=== PATIENT | female | born 1985 | race Caucasian/White ===

== ENCOUNTER 2020-06-07 08:08 | Outpatient (CLI) | payer OTHER, SELFPAY ==
--- NOTE | ~2020-06-07 | US_ITS ---
Corrected Report Order # added See bolded text 06/14/2020 [facility] US OB <=14 wk fetus w TV; US OB <= 14 wk fetus add gest DATE: 06/07/2020 08:57 INDICATION: Estimated gestational age determination. Twin gestation. Cramping and bleeding history. TECHNIQUE: Real time imaging and doppler analysis. COMPARISON: None FINDINGS: The uterus measures 13.8 cm height, 8.2 cm anteroposterior and 11.4 cm transverse dimension. Diamniotic twin gestation with posterior placenta. heart rate for baby A 148 bpm. heart rate for baby B 156 bpm. Normal amount of amniotic fluid in each sac. Baby A crown-rump length of 5.4 cm consistent with 12 weeks 0 days estimated gestational age +/- 1 week 1 day, with KATINA of 12/20/2020. Baby B crown-rump length measurement 6.16 cm, consistent with estimated gestational age of 12 weeks 4 days +/- 1 week 1 day, with KATINA of 12/16/2020. No pelvic mass or abnormal pelvic fluid collection is noted. IMPRESSION: Live diamniotic twin gestation Reviewed, dictated and finalized at [facility]. Reviewed, dictated and finalized at location [facility]. ITY REVIEW TRAINER MTDD
== END 2020-06-07 08:09 ==
PROVIDERS: Visit Provider Obstetrics & Gynecology
DX: Z34.91 Encounter for supervision of normal pregnancy, unspecified, first trimester (principal); Z3A.12 12 weeks gestation of pregnancy
CPT/HCPCS: 76801; 76802; 76817

== ENCOUNTER 2020-10-27 14:30 | Observation (INO) | payer OTHER, SELFPAY ==
[2020-10-27] VITALS (47 sets, daily range): BP systolic 117–133; BP diastolic 61–82; PULSE 89–132; RESP 18; TEMP 36.4; O2SAT 98–100; BMI 35.2
[2020-10-27] MEDS: TERBUTALINE SULFATE 1 MG/ML VIAL 0.25 MG SUB-Q ×2 (15:44→16:48)
--- NOTE | 2020-10-27 15:46 | OBADM ---
This patient, Moni Tamayo, admitted to the OB room Labor/Delivery/Recovery 118 for observation. Patient/family oriented to hospital policies and general routines including ID bracelet, bed and alarms, visiting hours, pain management, procedures, bathroom and other care routines, personal items, smoking policy, room service/diet, and visiting hours. Patient/Family are encouraged to report perceived risks to care and to ask questions if they do not understand what they are told or what they should do.
--- NOTE | 2020-10-27 16:26 | PM.OBTRLD ---
OB - Triage/Final Diagnosis Visit Information Date of evaluation: 10/27/20 Reason for evaluation: other (Twins / labor) Comments/Additional reasons for admission: I have assessed the risk for this patient, Moni Tamayo, and determined that she would benefit from observation care. Evaluation Vital signs: Vital Signs - 24 hr 10/27/20 15:30 10/27/20 15:42 10/27/20 16:00 Pulse Rate 95 99 100 Blood Pressure 118/74 118/72 117/70 10/27/20 16:15 Pulse Rate 102 H Blood Pressure 130/62
[2020-10-27 16:46] LABS: Add Urine Microscopic? YES; Appearance Urine Clear (Clear); Bilirubin Urine Negative (Negative); Blood Urine Negative (Negative); Color Urine Yellow (Yellow); Glucose Urine UA Negative (Negative); Ketones Urine Trace mg/dL (Negative); Leukocyte Esterase Ur Negative LEU/UL (Negative); Mucus Urine Rare /lpf; Nitrate Urine Negative (Negative); Protein Urine Negative (Negative); RBC Urine 0-2 /hpf (0-2); Specific Grav Ur 1.015 (1.001-1.035); Squamous Epithelial Cell Urine Rare /hpf (Few); Urobilinogen Urine Negative mg/dL (<2.0); WBC Urine 0-3 /hpf
[2020-10-27] MEDS: CALCIUM CARBONATE (TUMS) 500 MG (200 MG ELEMENTAL) PO (17:58)
[2020-10-27] MEDS: NIFEdipine 10 MG CAPSULE PO (18:37)
--- NOTE | 2020-10-27 19:20 | PC.NURSE ---
pt denies any pain at this time
== END 2020-10-27 19:32 | disposition home or self-care (01) ==
PROVIDERS: Admitting Provider Obstetrics & Gynecology; Visit Provider Obstetrics & Gynecology
DX: O60.03 Preterm labor without delivery, third trimester (principal); O30.003 Twin pregnancy, unspecified number of placenta and unspecified number of amniotic sacs, third trimester; Z3A.32 32 weeks gestation of pregnancy
CPT/HCPCS: 81001; 96372; A9270; G0378; G0379; J3105

== ENCOUNTER 2020-10-27 14:35 | Outpatient (RCR) | payer OTHER, SELFPAY ==
[2020-10-11] MEDS: RHO(D) IMMUNE GLOBULIN 300 MCG/2 ML SYRINGE IM (16:47)
== END 2021-01-08 23:59 | disposition home or self-care (01) ==
LOC: ANHLAB 14:35
PROVIDERS: Visit Provider Obstetrics & Gynecology
DX: Z29.13 Encounter for prophylactic Rho(D) immune globulin (principal); O36.0190 Maternal care for anti-D [Rh] antibodies, unspecified trimester, not applicable or unspecified; Z3A.00 Weeks of gestation of pregnancy not specified
CPT/HCPCS: 36415; 85461; 90384; 96372; J2790

== ENCOUNTER 2020-10-28 17:17 | Observation (INO) | payer OTHER, SELFPAY ==
[2020-10-28 17:33] VITALS: BP 125/71; PULSE 116
[2020-10-28 19:22] VITALS: BP 125/81; PULSE 100
[2020-10-28 19:45] VITALS: BMI 35.2
--- NOTE | 2020-10-28 20:47 | OBADM ---
This patient, Moni Tamayo, admitted to the OB room OB Post 116 for observation. Patient/family oriented to hospital policies and general routines including ID bracelet, bed and alarms, visiting hours, pain management, procedures, bathroom and other care routines, personal items, smoking policy, room service/diet, and visiting hours. Patient/Family are encouraged to report perceived risks to care and to ask questions if they do not understand what they are told or what they should do.
--- NOTE | 2020-11-16 15:35 | PM.OBTRLD ---
OB - Triage/Final Diagnosis Visit Information Comments/Additional reasons for admission: I have assessed the risk for this patient, Moni Tamayo, and determined that she would benefit from observation care. Final Diagnosis (1) False labor: Code(s): O47.9 - False labor, unspecified Status: Acute
== END 2020-10-28 20:00 | disposition home or self-care (01) ==
PROVIDERS: Admitting Provider Obstetrics & Gynecology; Visit Provider Obstetrics & Gynecology
DX: O47.9 False labor, unspecified (principal); Z3A.00 Weeks of gestation of pregnancy not specified
CPT/HCPCS: G0378; G0379

== ENCOUNTER 2020-11-24 13:26 | Outpatient (RCR) | payer OTHER, SELFPAY ==
[2020-10-31] MEDS: BETAMETHASONE SOD PHOS/ACETATE 30 MG/5 ML VIAL 12 MG IM (17:31)
[2020-11-01] MEDS: BETAMETHASONE SOD PHOS/ACETATE 30 MG/5 ML VIAL 12 MG IM (18:23)
[2020-11-03 16:01] VITALS: BP 111/61; PULSE 92
[2020-11-24 14:58] VITALS: PULSE 89
== END 2020-11-28 08:23 | disposition home or self-care (01) ==
LOC: ANHOBOP 13:26
PROVIDERS: Visit Provider Obstetrics & Gynecology
DX: O36.8990 Maternal care for other specified fetal problems, unspecified trimester, not applicable or unspecified (principal); Z3A.00 Weeks of gestation of pregnancy not specified
CPT/HCPCS: 59025; 96372; J0702

== ENCOUNTER 2020-12-02 14:05 | Outpatient (RCR) | payer OTHER, SELFPAY ==
[2020-10-31 18:44] VITALS: BP 117/58; PULSE 99
[2020-11-01 14:34] VITALS: BMI 35.6
[2020-12-02 16:19] VITALS: BP 121/73; PULSE 101
== END 2021-01-16 11:49 | disposition home or self-care (01) ==
LOC: ANHDMC 14:05
PROVIDERS: Visit Provider Obstetrics & Gynecology
DX: O24.319 Unspecified pre-existing diabetes mellitus in pregnancy, unspecified trimester (principal); O30.003 Twin pregnancy, unspecified number of placenta and unspecified number of amniotic sacs, third trimester; Z71.89 Other specified counseling; Z71.3 Dietary counseling and surveillance; Z3A.32 32 weeks gestation of pregnancy; Z3A.33 33 weeks gestation of pregnancy; Z3A.37 37 weeks gestation of pregnancy
CPT/HCPCS: 59025; 96372; 97802; G0108; J0702

== ENCOUNTER 2020-12-05 01:58 | Observation (INO) | payer OTHER, SELFPAY ==
--- NOTE | 2020-12-05 01:58 | OBADM ---
This patient, Moni Tamayo, admitted to the OB room Labor/Delivery/Recovery 102 for observation. Patient/family oriented to hospital policies and general routines including ID bracelet, bed and alarms, visiting hours, pain management, procedures, bathroom and other care routines, personal items, smoking policy, room service/diet, and visiting hours. Patient/Family are encouraged to report perceived risks to care and to ask questions if they do not understand what they are told or what they should do.
[2020-12-05 03:30] VITALS: BP 125/91; PULSE 74
[2020-12-05 04:01] VITALS: BP 131/84; PULSE 72
[2020-12-05 04:03] VITALS: BMI 35.9
[2020-12-05 04:05] VITALS: RESP 18
[2020-12-05] MEDS: HYDROcodone/acetaminophen (*CRX) 10-325 MG TABLET 1 TAB PO (04:13)
[2020-12-05 04:30] VITALS: BP 127/95; PULSE 83
--- NOTE | 2020-12-05 07:40 | PM.OBTRLD ---
OB - Triage/Final Diagnosis Visit Information Date of evaluation: 12/05/20 Reason for evaluation: threatened labor and other (twins) Comments/Additional reasons for admission: I have assessed the risk for this patient, Moni Reina Tamayo, and determined that she would benefit from observation care. Evaluation Vital signs: Vital Signs - 24 hr 12/05/20 03:30 12/05/20 04:01 12/05/20 04:05 Pulse Rate 74 72 Respiratory Rate 18 Blood Pressure 125/91 H 131/84 12/05/20 04:30 Pulse Rate 83 Respiratory Rate Blood Pressure 127/95 H
== END 2020-12-05 04:40 | disposition home or self-care (01) ==
PROVIDERS: Admitting Provider Obstetrics & Gynecology; Visit Provider Obstetrics & Gynecology
DX: O47.1 False labor at or after 37 completed weeks of gestation (principal); Z3A.37 37 weeks gestation of pregnancy
CPT/HCPCS: A9270; G0378; G0379

== ENCOUNTER 2020-12-09 05:23 | Inpatient (IN) | payer OTHER, SELFPAY ==
[2020-12-09] VITALS (98 sets, daily range): BP systolic 81–179; BP diastolic 47–135; PULSE 60–195; RESP 12–23; TEMP 36.3–36.9; O2SAT 95–100; BMI 37.6
[2020-12-09] MEDS: LACTATED RINGERS 1,000 ML 125 ML IV CONT ×2 (06:00→06:13)
[2020-12-09] MEDS: fentaNYL CITRATE INJ (*CRX) 100 MCG/2 ML VIAL 50 MCG IV PUSH (06:02)
[2020-12-09 06:09] LABS: Basophils Percent Auto 0.4 % (0.2-1.2); Eosinophils Absolute Auto 0.1 K/mm3 (0-0.3); Eosinophils Percent Auto 0.8 % (0-4.4); Hematocrit 27.8 % (37.0-47.0); Hemoglobin 8.4 g/dL (12.0-15.0); Immature Granulocyte Absolute 0.13 K/mm3 (0.00-0.031); Immature Granulocyte Percent A 1.6 % (0-0.5); Lymphocytes Absolute Auto 2.51 K/mm3 (0.9-3.2); Lymphocytes Percent Auto 31.5 % (18.3-44.2); Mean Corpuscular HGB Conc 30.2 g/dl (32-36); Mean Corpuscular Hemoglobin 22.3 pg (26-34); Mean Corpuscular Volume 73.7 fl (80-100); Mean Platelet Volume 10.6 fl (7.4-10.4); Monocytes Absolute Auto 0.5 K/mm3 (0.1-0.6); Monocytes Percent Auto 6.1 % (2.6-8.5); Neutrophils Absolute Auto 4.8 K/mm3 (1.3-6.7); Neutrophils Percent Auto 59.6 % (45.5-73.1); Nucleated Red Blood Cells Absolute Auto 0.1 K/mm3 (0.0-0.012); Nucleated Red Blood Cells Perc 0.6 % (0.0-0.2); Platelet Count Result 269 k/mm3 (150-375); Red Blood Count 3.77 M/mm3 (4.2-5.4); Red Cell Distribution Width 19.5 % (11.5-14.5)
--- NOTE | 2020-12-09 06:14 | WPDANESEPP ---
Anes - Eval Pre Procedure Procedure: labor epidural Date/Time: 12/09/20 06:14 Surgeon: luciana rosales Pre Op Diagnosis: Leaking Patient Data Age: 35 Gender: F Height: Weight: Allergies Allergy/AdvReac Type Severity Reaction Status Date / Time No Known Allergies Allergy Verified 11/03/17 22:38 Home Medications Medication Instructions Recorded Confirmed Type PNV cmb#95-ferrous fumarate-FA 1 tablet PO DAILY 10/27/20 12/05/20 History [] ferrous sulfate [FeroSul] 325 mg PO DAILY 10/27/20 12/05/20 History Humulin N NPH U-100 Insulin See Rx Instructions .ROUTE .COMPLEX 11/24/20 12/05/20 History insulin lispro [Humalog U-100 1 sliding scale dose SUBCUT 11/24/20 12/05/20 History Insulin] USEASDIRECTD Laboratory Tests 12/09/20 12/09/20 05:54 05:54 WBC Pending RBC Pending Hgb Pending Hct Pending MCV Pending MCH Pending MCHC Pending RDW Pending Plt Count Pending MPV Pending Immature Gran % (Auto) Pending Neut % (Auto) Pending Lymph % (Auto) Pending [place] % (Auto) Pending Eos % (Auto) Pending Baso % (Auto) Pending Lymph # (Auto) Pending [place] # (Auto) Pending Eos # (Auto) Pending Baso # (Auto) Pending Abs Immat Gran (auto) Pending Absolute Neuts (auto) Pending Absolute Nucleated RBC Pending Nucleated RBC % Pending RPR Pending Patient hx anesthesia problems: none Family hx anesthesia problems: none PMFSH Family History Family History (Updated 11/24/20 @ 13:40 by Cristian Larson RN) Other No pertinent family history Social History Social History Substance use: never Gender identity (if verbalized by the patient): Female Spiritual care concerns: No Exam Day of Procedure 12/09/20 06:14
[2020-12-09] MEDS: ONDANSETRON INJ 4 MG/2 ML VIAL IV PUSH ×2 (06:15→22:55)
--- NOTE | 2020-12-09 06:55 | LDADM ---
This patient, Moni Tamayo, was admitted to Labor/Delivery/Recovery 102 on 12/09/20 at 05:23. Plans for labor, pain management and were discussed with patient. Patient/family oriented to hospital policies and general routines including ID bracelet, bed and alarms, visiting hours, pain management, procedures, bathroom and other care routines, personal items, smoking policy, room service/diet and guest tray routines, security routines, and visiting hours. Patient/Family are encouraged to report perceived risks to care and to ask questions if they do not understand what they are told or what they should do. See OBIX for further documentation.
--- NOTE | 2020-12-09 07:29 | PM.IMHP ---
H&P: HPI History of Present Illness Date/Time: 12/09/20 07:29 35 y/o at 38 weeks with di/di twins, had gush of fluid at 0400. SROM confirmed. Vertex/breech twins. A2DM. Says her blood glucose has been dropping at night, so she has stopped taking the insulin. Last dose was several days ago. Also hasn't checked glucose in a while. GBS neg. Chief Complaint: 'My water broke. Review of Systems Review of Systems: All systems reviewed & are unremarkable except as noted in HPI and below PMFSH Family History Family History Other No pertinent family history Social History Social History Smoking status: Never smoker Substance use: never Gender identity (if verbalized by the patient): Female Spiritual care concerns: No Meds Home Medications and Allergies Home Medications Medication Instructions Recorded Confirmed Type PNV cmb#95-ferrous fumarate-FA 1 tablet PO DAILY 10/27/20 12/05/20 History [] ferrous sulfate [FeroSul] 325 mg PO DAILY 10/27/20 12/05/20 History Humulin N NPH U-100 Insulin See Rx Instructions .ROUTE .COMPLEX 11/24/20 12/05/20 History insulin lispro [Humalog U-100 1 sliding scale dose SUBCUT 11/24/20 12/05/20 History Insulin] USEASDIRECTD Allergies Allergy/AdvReac Type Severity Reaction Status Date / Time No Known Allergies Allergy Verified 11/03/17 22:38 Vital Signs Vital Signs - 24 hr 12/09/20 06:18 12/09/20 06:21 12/09/20 06:23 Pulse Rate 85 Blood Pressure 136/76 Pulse Oximetry 98 98 12/09/20 06:28 12/09/20 06:29 12/09/20 06:33 Pulse Rate 69 65 70 Blood Pressure 163/98 H 152/76 H 158/80 H Pulse Oximetry 99 99 12/09/20 06:35 12/09/20 06:37 12/09/20 06:38 Pulse Rate 71 76 82 Blood Pressure 154/75 H 152/73 H 152/89 H Pulse Oximetry 98 12/09/20 06:40 12/09/20 06:43 12/09/20 06:45 Pulse Rate 80 68 79 Blood Pressure 148/96 H 139/73 143/81 H Pulse Oximetry 98 12/09/20 06:47 12/09/20 06:48 12/09/20 06:51 Pulse Rate 107 H 77 Blood Pressure 134/69 139/78 Pulse Oximetry 100 12/09/20 06:53 12/09/20 06:58 12/09/20 07:01 Pulse Rate 81 82 Blood Pressure 158/87 H 147/89 H Pulse Oximetry 100 97 12/09/20 07:03 12/09/20 07:08 12/09/20 07:10 Pulse Rate 72 Blood Pressure 128/66 Pulse Oximetry 98 96 12/09/20 07:13 12/09/20 07:15 12/09/20 07:17 Pulse Rate 68 195 H 72 Blood Pressure 179/91 H 166/135 H 129/85 Pulse Oximetry 100 12/09/20 07:18 12/09/20 07:19 12/09/20 07:22 Pulse Rate 69 84 Blood Pressure 135/84 145/102 H Pulse Oximetry 100 12/09/20 07:23 12/09/20 07:28 Pulse Rate Blood Pressure Pulse Oximetry 100 99 Exam Const: Orientation/consciousness: patient oriented x3 Other: Well-developed, well-nourished female in no acute distress. Neck: Thyroid: thyroid normal Lymphatic: no lymphadenopathy noted (in neck, axilla or inguinal nodes) Resp: Effort & Inspection: normal respiratory effort Auscultation: clear to auscultation bilaterally Cardio: Rate: regular rate Rhythm: regular rhythm Heart sounds: S1 normal heart sound present and S2 normal heart sound present GI: Other: ABD: Soft, nontender, nondistended, gravid. NST 140 Reactive / 140 Reactive. Bedside ultrasound confirms vertex twin A, breech twin B. : General: Yes no CVA tenderness Other: Cervix 8/80/+1, vertex. Back/Spine/Pelvis: Back: no CVA tenderness Skin: General skin exam: normal color and no rashes or lesions noted Neuro: General: patient oriented x3 Extrem: Other: Extremities: nontender with no edema Psych: Mental Status: mental status grossly normal Affect: normal affect H&P: Results Labs Labs: Short CBC 12/09/20 Range/Units 05:54 WBC 8.0 (4.5-10.0) K/mm3 Hgb 8.4 L (12.0-15.0) g/dL Hct 27.8 L (37.0-47.0) % Plt Count 269 (150-375) k/mm3 Accucheck 10
[2020-12-09 07:33] LABS: Glucose Point of Care 104 mg/dl (65-105)
[2020-12-09 07:40] LABS: Rapid Plasma Reagin Non-Reactive (NonReactive)
--- NOTE | 2020-12-09 08:57 | WPDANESEFPP ---
Anes - Eval Final PreProcedure Day of Procedure 12/09/20 08:57 Patient weight: obese Heart: regular rate and rhythm Lungs: clear to auscultation and normal air movement Airway: Mallampati scale class II Neurological: alert and oriented Last oral intake: >/= 8 hours ASA classification: III Emergent: no Anesthetic plan: proceed Anesthesia type and monitoring: general ETT and standard monitoring Other findings: epidural not working, patient refused spinal, Pt aware of risk of general. Informed Consent: The patient's anesthetic plan and its attendant risks and benefits were discussed with the patient/family/POA. Questions were solicited and answers provided to the satisfaction of the patient/family/POA.
[2020-12-09] MEDS: KETOROLAC 30 MG/ML VIAL (*BKC) IM (09:03)
--- NOTE | 2020-12-09 10:02 | W.PM.PROC2 ---
Procedure Note - Detailed Date of Procedure 12/09/20 Pre-op Diagnosis Leaking/twins/vtxA and breech B Post-op Diagnosis same Procedure Performed Vaginal delivery of baby a Low-transverse section baby B Surgeon Amarjit Shi MD Indications since 35-year-old multiparous admitted in active labor with twins baby a was vertex baby B breech. Baby a delivered easily in the vertex position baby B was brought down to the +3 station in the breech presentation with the patient could not tolerate pain demanded a Description of Procedure patient was admitted in active labor. She is known gestational diabetic controlled but had not been taking her insulin. Sugar checks on admission were normal she progressive 1st stage of labor delivered baby a the vertex position anterior posterior shoulder delivered spontaneously the cord clamped x2 and cut was passed off the table with an excellent cry given Apgars of 9 [id number] and 10 5 baby B was noted to be breech in the radha breech position. With breech to maternal left. Membranes ruptured she brought that down to the +3 station. heart tones remained reassuring throughout. She stated she could no longer push and decision was made for section. After repeat prepping and draping the patient placed in supine position. She opted for a general anesthetic after induction incision was made a Pfannenstiel fashion progressive layers of fascia. Fascia was incised midline upward outward fashion bilaterally. Underlying muscles sharply dissected. Parietal peritoneum 0 by Allie clamps and by sharp dissection carried this was superior then inferior to the dome of the bladder. Bladder blade was flat made bladder flap made bladder blade returned a low-transverse incision made the breech delivered to the maternal left anterior posterior arms were swept medially the head delivered the flexed position passed off the table an excellent cry. Placenta delivered its placentas were delivered intact manually uterus delivered on the abdomen. After assuring no membranes or debris remained in the uterus, the uterus was closed with continuous running 0 Vicryl from lateral edge to lateral edge followed by 2nd imbricating running locking 0 Vicryl lateral edge. Hemostasis was assured. Ovaries and tubes appeared within normal limits and the uterus was returned to the abdomen after inspecting the hysterotomy incision. Laps removed and accounted for and the hysterotomy incision inspected 1 last time. Hemostasis was assured the fascia was closed with continuous running 0 Vicryl from lateral edge to midline bilaterally. Irrigation subcutaneous layer and the skin closed with 4 Monocryl and glue. Blood loss estimated [id number]. All sponge, needle, instrument counts were correct. There were no immediate complications Estimated Blood Loss -525.0 Drains No Packing No Pathology none sent Complications No immediate complications Condition stable Disposition floor
[2020-12-09] MEDS: fentaNYL CITRATE INJ (*CRX) 100 MCG/2 ML VIAL IV PUSH (10:04)
[2020-12-09] MEDS: fentaNYL CITRATE INJ (*CRX) 250 MCG/5 ML VIAL 100 MCG IV PUSH (10:28)
[2020-12-09 11:09] LABS: Hematocrit 24.2 % (37.0-47.0); Hemoglobin 7.3 g/dL (12.0-15.0)
[2020-12-09] MEDS: METHYLERGONOVINE MALEATE 0.2 MG/ML VIAL (11:21)
[2020-12-09] MEDS: MORPHINE SULFATE PCA (*CRX) 30 MG/30 ML SYR IV CONT (11:22)
--- NOTE | 2020-12-09 12:05 | SUR.PHASEI ---
1030--fundus 2/u. clots expressed. CAlled for assistance [id number]--Dr. Josh Vuong at bedside. Report given. Bimanual exam yields 558 blood and clots. Methergine given IM Left thigh.
--- NOTE | 2020-12-09 12:11 | SUR.PHASEI ---
1115--additional clots and bleeding 423ml Fundus now F/U and midline.
[2020-12-09] MEDS: miSOPROStol 200 MCG TABLET 800 MCG RECTAL (13:09)
--- NOTE | 2020-12-09 13:23 | OBPPTRN ---
Patient transferred to post room # 277 via stretcher. Support person present. Oriented to unit, room, information board, rooming in, admission packet and security measures. Patient verbalizes understanding.
[2020-12-09] MEDS: DEXTROSE 5%/0.45% SOD CHL 1,000 ML 125 ML IV CONT (16:37)
[2020-12-09] MEDS: DOCUSATE SODIUM 100 MG CAPSULE PO (16:37)
[2020-12-09] MEDS: POLYSACCHARIDE IRON COMPLEX 150 MG CAPSULE PO (16:37)
[2020-12-09 17:30] LABS: Hemoglobin 6.1 g/dL (12.0-15.0)
[2020-12-09 17:31] LABS: Hematocrit 20.2 % (37.0-47.0)
--- NOTE | 2020-12-09 19:46 | PC.NURSE ---
Today, GANG SUPERVISOR PIPE LINES settings have been GANG SUPERVISOR PIPE LINES dose of 1 mg not the originally charted value of 2 mg GANG SUPERVISOR PIPE LINES dose. Could not change values on JUN.
[2020-12-09] MEDS: KCL 20 MEQ/D5/0.45% SOD CHL 1,000 ML 125 ML IV CONT (23:26)
[2020-12-10] VITALS (12 sets, daily range): BP systolic 111–125; BP diastolic 46–69; PULSE 66–82; RESP 16–18; TEMP 36.7–37; O2SAT 97–98
[2020-12-10] MEDS: HYDROcodone/acetaminophen (*CRX) 10-325 MG TABLET 1 TAB PO ×2 (02:47→06:02)
[2020-12-10] MEDS: KETOROLAC 30 MG/ML VIAL (*BKC) IM (02:49)
--- NOTE | 2020-12-10 03:10 | PC.NURSE ---
While taking last vital set after 2nd unit of blood had transfused, this nurse noted that patient's abdomen seemed more distended than earlier in the shift. Able to palpate the fundus with difficulty due to the edema of the abdomen. Vitals remained relatively unchanged during transfusion of two units of RBC. Patient has been using morphine YARD STOCKER for pain control. patient has had good output. This nurse sought charge nurse and labor nurse for second opinions.
[2020-12-10 06:16] LABS: Basophils Percent Auto 0.2 % (0.2-1.2); Eosinophils Percent Auto 0.2 % (0-4.4); Hematocrit 22.5 % (37.0-47.0); Immature Granulocyte Absolute 0.09 K/mm3 (0.00-0.031); Immature Granulocyte Percent A 0.7 % (0-0.5); Lymphocytes Absolute Auto 2.08 K/mm3 (0.9-3.2); Mean Corpuscular HGB Conc 31.1 g/dl (32-36); Mean Corpuscular Hemoglobin 23.6 pg (26-34); Monocytes Absolute Auto 0.7 K/mm3 (0.1-0.6); Monocytes Percent Auto 5.7 % (2.6-8.5); Neutrophils Absolute Auto 10.1 K/mm3 (1.3-6.7); Neutrophils Percent Auto 77.2 % (45.5-73.1); Nucleated Red Blood Cells Perc 0.2 % (0.0-0.2); Platelet Count Result 166 k/mm3 (150-375); Red Blood Count 2.96 M/mm3 (4.2-5.4); Red Cell Distribution Width 18.9 % (11.5-14.5)
--- NOTE | 2020-12-10 06:58 | PC.NURSE ---
Charting the administration of morphine through the LIFESTYLE CONSULTANT in the [facility] during this shift displays some inaccuracies. In summary, from 1830 on 12/09 until 239 on 12/10, the patient used 19.5 ml of medication from the LIFESTYLE CONSULTANT pump. 11.5ml of the 30 ml cartridge were wasted with Norma Em RN, as witness. During entire infusion, patient could be easily aroused, exhibited no breathing difficulties, and was relatively comfortable. The patient was receiving a blood transfusion through another peripheral IV, so there were vital signs being taken and recorded throughout the shift.
--- NOTE | 2020-12-10 07:27 | P.PNOB_ITS ---
OB - PN: Subj Subjective Date/time seen: 12/10/20 07:27 Narrative: Pain OK. Bleeding minimal. S/p 2 units PRBC. Tolerating diet. OB - PN: Obj Data Labs CBC & Chem 7: 12/10/20 05:50 Labs: Laboratory Results - last 24 hr 12/09/20 12/09/20 12/09/20 05:54 05:54 07:31 WBC RBC Hgb Hct MCV MCH MCHC RDW Plt Count MPV Immature Gran % (Auto) Neut % (Auto) Lymph % (Auto) [place] % (Auto) Eos % (Auto) Baso % (Auto) Lymph # (Auto) [place] # (Auto) Eos # (Auto) Baso # (Auto) Abs Immat Gran (auto) Absolute Neuts (auto) Absolute Nucleated RBC Nucleated RBC % POC Capillary Glucose 104 RPR Non-reactive Blood Type O Negative Antibody Screen Negative Crossmatch See Detail 12/09/20 12/09/20 12/10/20 11:00 17:10 05:50 WBC 13.0 H RBC 2.96 L Hgb 7.3 L 6.1 L* 7.0 L Hct 24.2 L 20.2 L* 22.5 L MCV 76.0 L MCH 23.6 L D MCHC 31.1 L RDW 18.9 H Plt Count 166 MPV 11.0 H Immature Gran % (Auto) 0.7 H Neut % (Auto) 77.2 H Lymph % (Auto) 16.0 L [place] % (Auto) 5.7 Eos % (Auto) 0.2 Baso % (Auto) 0.2 Lymph # (Auto) 2.08 [place] # (Auto) 0.7 H Eos # (Auto) 0.0 Baso # (Auto) 0.0 Abs Immat Gran (auto) 0.09 H Absolute Neuts (auto) 10.1 H Absolute Nucleated RBC 0.0 Nucleated RBC % 0.2 POC Capillary Glucose RPR Blood Type Antibody Screen Crossmatch OB - PN A/P Plan Comments: A: POD#1, doing well. P: Routine care. Exam Narrative: AVSS I/O OK ABD soft, nontender, fundus firm. Abdomen is distended, tympanic. Normoactive bowel sounds. Incision c/d/i. EXT nontender
[2020-12-10] MEDS: KETOROLAC 30 MG/ML VIAL (*BKC) IV PUSH (10:06)
[2020-12-10] MEDS: SIMETHICONE 80 MG TAB.CHEW PO (10:07)
[2020-12-10] MEDS: POLYSACCHARIDE IRON COMPLEX 150 MG CAPSULE PO ×2 (10:07→17:24)
[2020-12-10] MEDS: MULTIVIT/MIN/PREN/FOL AC/IRON TABLET 1 TAB PO (10:07)
[2020-12-10] MEDS: DOCUSATE SODIUM 100 MG CAPSULE PO ×2 (10:07→17:24)
[2020-12-10] MEDS: HYDROcodone/acetaminophen (*CRX) 5-325 MG TABLET 1 TAB PO ×2 (10:07→17:24)
--- NOTE | 2020-12-10 11:55 | WPDANLDPN2 ---
Anes-Prog Note L&D Date/Time: 12/10/20 11:55 Comfortable throughout: labor, delivery and section Neuraxial method: epidural Epidural/Spinal procedure site: clean & non-tender Neuro status: Neuro function grossly intact. Cardiovascular status: normal Respiratory status: normal Airway patency: baseline Mental status: baseline Post-Op hydration status: other (pt experienced post bleed.bloof transfusion given) Vital Signs: Last Vital Signs Temp 98.5 F 12/10/20 07:30 Pulse 77 12/10/20 07:30 Resp 18 12/10/20 07:30 BP 120/49 L 12/10/20 07:30 Pulse Ox 98 12/10/20 05:30 Pain score (VAS): 4/10 I/O: Intake & Output 12/09/20 12/10/20 12/10/20 23:59 07:59 15:59 Intake Total 2215.4 1740.5 Output Total 125 2400 Balance 2090.4 -659.5 Post-procedural complaints: none Patient feedback: Patient satisfied with anesthetic care. Other findings: pt had epidural placed during labor.epidural failed to provide relief.
--- NOTE | 2020-12-10 11:58 | P.PNAN_ITS ---
Anes - Prog Note Post-Op Date/Time: 12/10/20 11:58 Cardiovascular status: normal Respiratory status: normal Airway patency: baseline Mental status: baseline Post-Op hydration status: other (pt experienced post bleed.bloof transfusion given) Vital Signs: Last Vital Signs Temp 98.5 F 12/10/20 07:30 Pulse 77 12/10/20 07:30 Resp 18 12/10/20 07:30 BP 120/49 L 12/10/20 07:30 Pulse Ox 98 12/10/20 05:30 Pain Score (VAS): 410 I/O: Intake & Output 12/09/20 12/10/20 12/10/20 23:59 07:59 15:59 Intake Total 2215.4 1740.5 Output Total 125 2400 Balance 2090.4 -659.5 Laboratory Tests 12/10/20 05:50 12/09/20 12/09/20 12/10/20 05:54 17:10 05:50 WBC 13.0 H RBC 2.96 L Hgb 6.1 L* 7.0 L Hct 20.2 L* 22.5 L MCV 76.0 L MCH 23.6 L D MCHC 31.1 L RDW 18.9 H Plt Count 166 MPV 11.0 H Immature Gran % (Auto) 0.7 H Neut % (Auto) 77.2 H Lymph % (Auto) 16.0 L [place] % (Auto) 5.7 Eos % (Auto) 0.2 Baso % (Auto) 0.2 Lymph # (Auto) 2.08 [place] # (Auto) 0.7 H Eos # (Auto) 0.0 Baso # (Auto) 0.0 Abs Immat Gran (auto) 0.09 H Absolute Neuts (auto) 10.1 H Absolute Nucleated RBC 0.0 Nucleated RBC % 0.2 Blood Type O Negative Antibody Screen Negative Crossmatch See Detail Post-procedural complaints: none Patient Feedback: Patient satisfied with anesthetic care. Other Findings: GETA for CS to deliver baby B.
[2020-12-10] MEDS: IBUPROFEN 600 MG TABLET PO (17:25)
[2020-12-10] MEDS: TETANUS,DIPHTHERIA,AC PERTUSSIS ADULT (0.5 ML) BOOSTRIX IM (17:26)
[2020-12-11] VITALS (8 sets, daily range): BP systolic 119–142; BP diastolic 69–84; PULSE 68–104; RESP 18–20; TEMP 36.1–36.9; O2SAT 99
[2020-12-11] MEDS: HYDROcodone/acetaminophen (*CRX) 5-325 MG TABLET 1 TAB PO ×4 (00:32→23:31)
[2020-12-11] MEDS: IBUPROFEN 600 MG TABLET PO ×4 (00:32→23:31)
[2020-12-11] MEDS: SIMETHICONE 80 MG TAB.CHEW PO ×2 (04:34→09:22)
[2020-12-11 06:50] LABS: Hematocrit 20.5 % (37.0-47.0)
[2020-12-11 06:51] LABS: Hemoglobin 6.4 g/dL (12.0-15.0)
--- NOTE | 2020-12-11 07:53 | PM.OBPNVD ---
OB - PN: Subj Subjective Date/time seen: 12/11/20 07:53 Narrative: Pain OK. Tolerating diet. Says she feels weak and tired. No SOB. No chest pain. OB - PN: Obj Data Labs CBC & Chem 7: 12/11/20 05:54 Labs: Laboratory Results - last 24 hr 12/11/20 05:54 Hgb 6.4 L* Hct 20.5 L* OB - PN A/P Plan Comments: A: POD#2, doing well overall. Hgb dropped a little, and her anemia seems symptomatic. P: Transfuse one more unit PRBC. Reviewed risks, benefits, alternatives, and she agrees. Exam Narrative: AVSS I/O OK ABD soft, nontender, fundus firm. Incision c/d/i. EXT nontender
[2020-12-11] MEDS: MULTIVIT/MIN/PREN/FOL AC/IRON TABLET 1 TAB PO (09:22)
[2020-12-11] MEDS: POLYSACCHARIDE IRON COMPLEX 150 MG CAPSULE PO ×2 (09:22→16:52)
[2020-12-11] MEDS: DOCUSATE SODIUM 100 MG CAPSULE PO ×2 (09:22→16:52)
[2020-12-11] MEDS: HYDROcodone/acetaminophen (*CRX) 10-325 MG TABLET 1 TAB PO ×2 (09:23→13:10)
[2020-12-11] MEDS: SODIUM CHLORIDE 0.9% IV 250 ML 30 ML IV CONT (16:52)
[2020-12-11] MEDS: diphenhydrAMINE HCl INJ 50 MG/ML VIAL IV PUSH (18:42)
[2020-12-11] MEDS: FAMOTIDINE 20 MG/2 ML VIAL IV PUSH (19:01)
--- NOTE | 2020-12-11 19:24 | PC.NURSE ---
12/11/2020 at 1825 (Approx.) Patient called out stating her eyes are swelling after she ate. I entered room and patient is removing her contacts from eye bilaterally. Patient helped back into bed and assessment done. Patient complaining of feeling her throat closing up and finding it difficult to breath. VS 98.1; 99%; 104; and 142/84. Patient is anxious. Patients eyelids are very swollen and she can barely open them. 1832 Dr. Elise paged 911. 1835 Dr. Elise returned call and patient update given. Orders received for patient to have Benedryl 50 mg IVP now and Pepcid 20 mg now. 184 Benedryl 50 mg IV given. Patient helped OOB to use a bedside commode (patient having a difficult time manuevering without being able to see.) and back to bed after. 1900 Pepcid 20 mg IV given. 1904 Patient states her breathing is fine now. pulse ox 100% Patient has warm washclothes applied to eyes for patient comfort. I stressed to the patient and her significant other Mikel to call out if any needs arise or it the patient needs to use the beside commode. Patient and her significant other states understanding.
[2020-12-12 00:05] VITALS: BP 128/83; PULSE 86; RESP 18; TEMP 36.7; O2SAT 99
[2020-12-12] MEDS: diphenhydrAMINE HCl INJ 50 MG/ML VIAL IV PUSH (00:46)
--- NOTE | 2020-12-12 02:13 | PC.NURSE ---
12/11/2020 at 0005 Upon bringing one of the babys back from her assessment in the nursery Moni states, I was just going to call you. Moni is complaining about swelling in her hands and that she can hardly move them. She also complains that her whole right arm feels swelled and that she just doesn't feel right. My hole arm feels itchy. Increase edema noted in patient's feet, hands and face. VS done and WNL. 0020 Dr[address] Elise paged. 0029 Dr. Elies called and patient update given. Orders received to give another dose of Benedryl 50 mg IV now. Order received for 25-50 mg Benedryl every 6 hrs prn for itch. 0046 Benedryl 50 mg given IVP. Patient complained of severe pain in hand with administration of medication. IV removed at this time. Ice packs applied to edematous eyelids and right hand. Twin baby girls taken to nursery to allow parents rest. I asked mother to call out if any needs arise. Call be within reach. Patient states understanding.
[2020-12-12 05:56] LABS: Hematocrit 23.7 % (37.0-47.0); Hemoglobin 7.4 g/dL (12.0-15.0); Mean Corpuscular HGB Conc 31.2 g/dl (32-36); Mean Corpuscular Hemoglobin 24.4 pg (26-34); Mean Corpuscular Volume 78.2 fl (80-100); Mean Platelet Volume 9.8 fl (7.4-10.4); Platelet Count Result 227 k/mm3 (150-375); Red Blood Count 3.03 M/mm3 (4.2-5.4); Red Cell Distribution Width 19.6 % (11.5-14.5); White Blood Count 9.6 K/mm3 (4.5-10.0)
--- NOTE | 2020-12-12 06:26 | P.PNOB_ITS ---
OB - PN: Subj Subjective Date/time seen: 12/12/20 06:26 Patient comments: no complaints, pain well controlled and other [place] baby status: doing well and nursing well Narrative: Earlier this a.m. had a reaction including swelling which responded to diphenhydramine. Feeling wonderful this morning wants to go OB - PN: Obj Data Labs CBC & Chem 7: 12/12/20 05:44 Labs: Laboratory Results - last 24 hr 12/09/20 12/11/20 12/12/20 05:54 05:54 05:44 WBC 9.6 RBC 3.03 L Hgb 6.4 L* 7.4 L Hct 20.5 L* 23.7 L MCV 78.2 L MCH 24.4 L MCHC 31.2 L RDW 19.6 H Plt Count 227 MPV 9.8 Blood Type O Negative Antibody Screen Negative Crossmatch See Detail OB - PN A/P Plan day: 3 Plan: routine care, discharge home and follow up 6 weeks (one week) Time Spent With Patient Time: Total time spent is greater than 50% in coordination of care (as documented) at patient's floor/unit and/or counseling patient: Time with patient: 15 - 25 minutes Review of Systems Review of Systems: All systems reviewed & are unremarkable except as noted in HPI and below Exam Const: General: no acute distress Eyes: General: appearance normal, both eyes and all related structures Neck: Neck: supple and no JVD Thyroid: thyroid normal Resp: Effort & Inspection: normal respiratory effort Auscultation: clear to auscultation bilaterally Cardio: Rate: regular rate Rhythm: regular rhythm GI: Inspection: non-distended GI Palp: Yes Soft to palpation, No Tenderness to palpation present (GI) and No Guarding due to palpation present (GI) Auscultation: normal bowel sounds : General: Yes bladder normal to palpation External Female Exam: normal external appearance Speculum Exam - Vagina: normal vaginal discharge and No vaginal bleeding Speculum Exam - Cervix: nontender Bimanual exam- vagina & uterus: bladder normal to palpation and No Cervical tenderness present OB/external & speculum: No vaginal bleeding Skin: General skin exam: no rashes or lesions noted Extrem: General: normal to inspection and no edema Psych: Mental Status: mental status grossly normal Affect: normal affect
--- NOTE | 2020-12-12 06:27 | PM.DS ---
DS: Admitting Diagnosis Admitting Diagnosis twins term/malpresentation second twin DS: Summary Hospital Course Hospital Course: the patient was admitted in active labor with twins. She underwent spontaneous vaginal delivery of the 1st. She was unable to deliver the 2nd due to lack of effort and underwent section. She had a fair to moderate amount of bleeding and received a total of 3units and her hemoglobin was 7.4 on the a.m. of discharge. She was up, voiding without difficulty, ambulating, eating regular diet, and generally without complaints Time Spent with Patient Time attestation: Total time spent providing and/or coordinating discharge services: Exam Const: General: no acute distress Eyes: General: appearance normal, both eyes and all related structures Neck: Neck: supple and no JVD Thyroid: thyroid normal Resp: Effort & Inspection: normal respiratory effort Auscultation: clear to auscultation bilaterally Cardio: Rate: regular rate Rhythm: regular rhythm GI: Inspection: non-distended GI Palp: Yes Soft to palpation, No Tenderness to palpation present (GI) and No Guarding due to palpation present (GI) Auscultation: normal bowel sounds : General: Yes bladder normal to palpation External Female Exam: normal external appearance Speculum Exam - Vagina: normal vaginal discharge and No vaginal bleeding Speculum Exam - Cervix: nontender Bimanual exam- vagina & uterus: bladder normal to palpation and No Cervical tenderness present OB/external & speculum: No vaginal bleeding Skin: General skin exam: no rashes or lesions noted Extrem: General: normal to inspection and no edema Psych: Mental Status: mental status grossly normal Affect: normal affect DS: Data Data Completed and Pending Labs on day of discharge: Labs from last 24 hours 12/12/20 12/11/20 12/09/20 05:44 05:54 05:54 WBC 9.6 RBC 3.03 L Hgb 7.4 L 6.4 L* Hct 23.7 L 20.5 L* MCV 78.2 L MCH 24.4 L MCHC 31.2 L RDW 19.6 H Plt Count 227 MPV 9.8 Blood Type O Negative Antibody Screen Negative Crossmatch See Detail Discharge Plan Discharge Attending physician on discharge: Amarjit Shi Discharging Clinician: Amarjit Shi Patient Disposition: Home, Self-Care Activity: may shower, no straining, may drive after 2 weeks and pelvic rest Diet: heart healthy Wound Care Instructions: follow printed instructions Patient Instructions: Antibiotic Form Stand Alone Forms: General Discharge Information Follow-up/Referrals: Amarjit Shi MD [Physician] - Discharge Medications: New hydrocodone-acetaminophen 5-325 mg tablet 1 tablet PO Q4H PRN (Reason: pain) Qty: 30 RF: 0 Discontinued Humulin N NPH U-100 Insulin 100 unit/mL Suspension See Rx Instructions .ROUTE .COMPLEX RF: 0 insulin lispro [Humalog U-100 Insulin] 100 unit/mL Solution 1 sliding scale dose SUBCUT USEASDIRECTD RF: 0 No Action ferrous sulfate [FeroSul] 325 mg (65 mg iron) tablet 325 mg PO DAILY RF: 0 PNV cmb#95-ferrous fumarate-FA [] 28 mg iron- 800 mcg Tablet 1 tablet PO DAILY RF: 0 Date of admission: 12/09/20 05:23 Primary Care Provider: PHYSICIAN,COAL EQUIPMENT OPERATOR Admitting Provider: Amarjit Shi Attending physician on admission: Amarjit Shi Condition: Stable
[2020-12-12 09:00] VITALS: BP 133/71; PULSE 84; RESP 18; TEMP 36.3; O2SAT 98
[2020-12-12] MEDS: HYDROcodone/acetaminophen (*CRX) 5-325 MG TABLET 1 TAB PO (09:14)
[2020-12-12] MEDS: IBUPROFEN 600 MG TABLET PO (09:15)
[2020-12-12] MEDS: POLYSACCHARIDE IRON COMPLEX 150 MG CAPSULE PO (09:17)
[2020-12-12] MEDS: MULTIVIT/MIN/PREN/FOL AC/IRON TABLET 1 TAB PO (09:17)
[2020-12-12] MEDS: DOCUSATE SODIUM 100 MG CAPSULE PO (09:17)
--- NOTE | 2020-12-12 18:36 | PC.NURSE ---
1135 Mother states she has read through discharge instructions for herself and for her babies, and voiced understanding. Papers signed.
[2020-12-14 08:38] VITALS: BP 128/67; PULSE 77; RESP 20; TEMP 37.2; O2SAT 99
== END 2020-12-12 12:00 | disposition home or self-care (01) | DRG 788 ==
LOC: ANHLDR 05:49 → ANHOB2 13:28
PROVIDERS: Admitting Provider Obstetrics & Gynecology; Visit Provider Obstetrics & Gynecology
PROC: (CPT 59514; principal; 2020-12-09 08:30)
DX: O30.043 Twin pregnancy, dichorionic/diamniotic, third trimester (principal); O24.424 Gestational diabetes mellitus in childbirth, insulin controlled; O32.1XX2 Maternal care for breech presentation, fetus 2; O70.0 First degree perineal laceration during delivery; O69.81X2 Labor and delivery complicated by cord around neck, without compression, fetus 2; Z3A.38 38 weeks gestation of pregnancy; Z37.2 Twins, both liveborn
CPT/HCPCS: 36415; 36430; 82948; 85014; 85018; 85025; 85027; 86592; 86850; 86900; 86901; 86920; 90715; A9270; J0131; J0330; J0690; J1200; J1885; J2210; J2250; J2270; J2405; J2590; J2704; J2795; J3010; J3480; J7050; J7120; P9016

== ENCOUNTER 2021-01-04 00:04 | Emergency (ER) | payer OTHER, SELFPAY ==
[2021-01-04 00:05] VITALS: BP 105/81; PULSE 73; RESP 12; TEMP 36.5; O2SAT 99
--- NOTE | 2021-01-04 01:13 | ED.GENADULT ---
HPI - General Adult General Chief complaint: Vaginal Bleeding Stated complaint: vaginal bleeding Time Seen by Provider: 01/04/21 00:10 History of Present Illness HPI narrative: Patient 35-year-old female presents the emergency department with chief complaint of vaginal bleeding. Patient reports that she is after both a vaginal delivery and for twins the patient states that she has had normal lochia and then this evening felt as though she was having something running out of her and noticed that she had a large amount of bleeding and passed some large clots. Patient states that she saturated a pad during this time Related Data Home Medications Medication Instructions Recorded Confirmed PNV cmb#95-ferrous fumarate-FA 1 tablet PO DAILY 10/27/20 12/05/20 [] ferrous sulfate [FeroSul] 325 mg PO DAILY 10/27/20 12/05/20 Allergies Allergy/AdvReac Type Severity Reaction Status Date / Time No Known Allergies Allergy Verified 01/04/21 00:11 Review of Systems Review of Systems: A 10 system review of systems was completed on the patient and is negative except for what is stated in the HPI. Nursing and ancillary documentation was reviewed. [facility] Family History Family History Other No pertinent family history Social History Social History Smoking status: Never smoker Substance use: never Gender identity (if verbalized by the patient): Female Spiritual care concerns: No Exam Narrative: GENERAL: Well-appearing, well-nourished, and in no acute distress. HEAD: Normocephalic, atraumatic. EYES: PERRLA and EOMI. ENT: Nares clear, no rhinorrhea or epistaxis. Mucous membranes moist. NECK: Supple. CHEST: Clear to auscultation. No respiratory distress. HEART: Regular rate and rhythm. No murmur heard. Normal peripheral pulses. ABDOMEN: Soft, nontender, nondistended, normal active bowel sounds. : There was small clots in the vaginal vault and some dark blood in the vaginal vault. Blood was able to be cleared using approximately 5 swabs EXTREMITIES: Normal range of motion. No edema. SKIN: Warm, dry, no rash. NEURO: No focal deficits. Alert and oriented x3. PSYCH: Normal mood and affect. Course Vital Signs Vital signs: Vital Signs Temperature 36.5 C 01/04/21 00:05 Pulse Rate 73 01/04/21 00:05 Respiratory Rate 12 01/04/21 00:05 Blood Pressure 105/81 01/04/21 00:05 Pulse Oximetry 99 01/04/21 00:05 Temperature 36.5 C 01/04/21 00:05 Pulse Rate 73 01/04/21 00:05 Respiratory Rate 12 01/04/21 00:05 Blood Pressure 105/81 01/04/21 00:05 Pulse Oximetry 99 01/04/21 00:05 Medical Decision Making Vital Signs Vital Signs: Vital Signs Temperature 36.5 C 01/04/21 00:05 Pulse Rate 73 01/04/21 00:05 Respiratory Rate 12 01/04/21 00:05 Blood Pressure 105/81 01/04/21 00:05 Pulse Oximetry 99 01/04/21 00:05 Temperature 36.5 C 01/04/21 00:05 Pulse Rate 73 01/04/21 00:05 Respiratory Rate 12 01/04/21 00:05 Blood Pressure 105/81 01/04/21 00:05 Pulse Oximetry 99 01/04/21 00:05 Lab Data Result diagrams: 01/04/21 00:41 01/04/21 00:41 Labs: Lab Results 01/04/21 01/04/21 01/04/21 Range/Units 00:41 00:41 00:41 WBC 9.5 (4.5-10.0) K/mm3 RBC 3.43 L (4.2-5.4) M/mm3 Hgb 8.8 L (12.0-15.0) g/dL Hct 28.5 L (37.0-47.0) % MCV 83.1 (80-100) fl MCH 25.7 L (26-34) pg MCHC 30.9 L (32-36) g/dl RDW 19.9 H (11.5-14.5) % Plt Count 420 H D (150-375) k/mm3 MPV 9.4 (7.4-10.4) fl Immature Gran % (Auto) 0.3 (0-0.5) % Neut % (Auto) 61.2 (45.5-73.1) % Lymph % (Auto) 31.2 (18.3-44.2) % [place] % (Auto) 4.3 (2.6-8.5) % Eos % (Auto) 2.5 (0-4.4) % Baso % (Auto) 0.5 (0.2-1.2) % Lymph # (Auto) 2.95 (0.9-3.2) K/mm
[2021-01-04 01:45] VITALS: BP 106/78; PULSE 100; RESP 14; O2SAT 100
--- NOTE | 2021-01-04 21:07 | PM.IMHP ---
H&P: HPI History of Present Illness Date/Time: 01/04/21 21:07 35 y/o who had twin delivery ( twin A, twin B) nearly 4 weeks ago. Had a postop hemorrhage and received 3 units PRBC. Has had several episodes of bleeding over the last day. Was triaged in ED last night, seen in the office today. Stood up this evening and blood ran down her legs. Has received IV fluids and TXA 1 gram IV so far in ED. Has not had COVID-19 vaccine. Twins are doing well. Bottle feeding. Chief Complaint: Bleeding Review of Systems Review of Systems: All systems reviewed & are unremarkable except as noted in HPI and below PMFSH Past Medical History Medical History History of gestational diabetes Surgical History Surgical History delivery delivered Family History Family History Other No pertinent family history Social History Social History Smoking status: Never smoker Substance use: never Gender identity (if verbalized by the patient): Female Spiritual care concerns: No Meds Home Medications and Allergies Home Medications Medication Instructions Recorded Confirmed Type PNV cmb#95-ferrous fumarate-FA 1 tablet PO DAILY 10/27/20 12/05/20 History [] ferrous sulfate [FeroSul] 325 mg PO DAILY 10/27/20 12/05/20 History hydrocodone-acetaminophen 1 tablet PO Q4H PRN #30 tablet 12/12/20 Rx Allergies Allergy/AdvReac Type Severity Reaction Status Date / Time No Known Allergies Allergy Verified 01/04/21 19:56 Vital Signs Vital Signs - 24 hr 01/04/21 00:05 01/04/21 01:45 Temperature 36.5 C Pulse Rate 73 100 Respiratory Rate 12 14 Blood Pressure 105/81 106/78 Pulse Oximetry 99 100 Exam Const: Orientation/consciousness: patient oriented x3 Other: Well-developed, well-nourished female in no acute distress. Neck: Thyroid: thyroid normal Lymphatic: no lymphadenopathy noted (in neck, axilla or inguinal nodes) Resp: Effort & Inspection: normal respiratory effort Auscultation: clear to auscultation bilaterally Cardio: Rate: regular rate Rhythm: regular rhythm Heart sounds: S1 normal heart sound present and S2 normal heart sound present GI: Other: ABD: Soft, nontender, nondistended. No guarding or rebound tenderness. No hepatosplenomegaly. Incision c/d/i, healing well. : General: Yes no CVA tenderness Other: Sitting in a pool of blood with at least 300 mL. Last time pad was changed was 1 hour ago. Back/Spine/Pelvis: Back: no CVA tenderness Skin: General skin exam: normal color and no rashes or lesions noted Neuro: General: patient oriented x3 Extrem: Other: Extremities: nontender with no edema Psych: Mental Status: mental status grossly normal Affect: normal affect H&P: Results Labs Labs: Short CBC 01/04/21 Range/Units 00:41 WBC Cancelled Hgb Cancelled Hct Cancelled Plt Count Cancelled BMP 01/04/21 00:41 Sodium Cancelled Potassium Cancelled Chloride Cancelled Carbon Dioxide Cancelled BUN Cancelled Creatinine Cancelled Glucose Cancelled Calcium Cancelled Liver Function 01/04/21 Range/Units 00:41 Total Bilirubin Cancelled AST Cancelled ALT Cancelled Alkaline Phosphatase Cancelled Albumin Cancelled Hgb 8.6. Coagulation labs normal. Assessment and Plan Assessment and plan (1) hemorrhage: Code(s): O72.1 - Other immediate hemorrhage Status: Acute Assessment and Plan: A: Heavy episode of vaginal bleeding, POD#26 after of twins. P: Start one unit PRBC. I offered her a dilation and suction curettage. She understands risks of surgery to include risks of anesthesia, risks of pain, infection, bleeding, blood pro
--- NOTE | 2021-01-04 22:20 | WPDHPUPDATE1 ---
History and Physical Update Update Date/Time: 01/04/21 22:20 History and Physical has been reviewed, including an updated exam of the patient. There are NO changes in the patient's condition. Risks, benefits, and alternatives have been discussed and questions answered. Patient agrees to proceed with procedure.
--- NOTE | 2021-01-04 23:02 | W.PM.PROC2 ---
Procedure Note - Detailed Date of Procedure 01/04/21 Pre-op Diagnosis Heavy vaginal bleeding Post-op Diagnosis same Procedure Performed Dilation and suction curettage Surgeon Keshav Elise MD Anesthesia general and local (1% lidocaine) Findings 100 mL clotted blood in vaginal vault. Cervix dilated at start of procedure. Products of conception and clotted blood noted. Description of Procedure The patient was taken to the operating room where she was prepared and draped in the usual sterile fashion in the dorsal lithotomy position. The bladder was drained with a red rubber catheter. A sterile speculum was placed into the vagina. Approximately 100 mL clotted blood was evacuated from the vaginal vault. The anterior lip of the cervix was grasped with a single-tooth tenaculum. Ten mL of 1% lidocaine was administered in a paracervical block. The cervix did not require dilation. The 8mm curved tip suction curette was advanced. Suction curettage was performed and products of conception were aspirated. Sharp curettage was then performed until a good uterine cry was noted. A final pass with the suction curette was made. The tenaculum was removed. Hemostasis was excellent. Sponge, lap, needle and instrument counts were correct. The patient was taken to the recovery room in stable condition. I was present and scrubbed for the entire procedure. Estimated Blood Loss 400 Drains No Packing No Pathology yes (endometrial curettings) Complications None Condition stable Disposition PACU
--- NOTE | 2021-02-08 11:04 | PC.NURSE ---
LATE ENTRY This note is being entered to document information to the patient's record. The following information was incorrectly entered on [01/04/2021], by [Gayle Enciso RN]. Pt was 4 weeks post not 4 month post .
== END 2021-01-04 01:45 | disposition home or self-care (01) ==
PROVIDERS: Emergency Provider Emergency Medicine
DX: O72.2 Delayed and secondary postpartum hemorrhage (principal)
CPT/HCPCS: 36415; 80053; 85025; 85610; 85730; 86850; 86900; 86901; 99283

== ENCOUNTER 2021-01-04 19:31 | Observation (INO) | payer OTHER, SELFPAY ==
[2021-01-04] VITALS (11 sets, daily range): BP systolic 98–135; BP diastolic 48–80; PULSE 60–88; RESP 13–18; TEMP 36.1–36.8; O2SAT 100
[2021-01-04 00:51] LABS: Basophils Absolute Auto 0.1 K/mm3 (0.0-0.1); Basophils Percent Auto 0.5 % (0.2-1.2); Eosinophils Absolute Auto 0.2 K/mm3 (0-0.3); Eosinophils Percent Auto 2.5 % (0-4.4); Hematocrit 28.5 % (37.0-47.0); Hemoglobin 8.8 g/dL (12.0-15.0); Immature Granulocyte Absolute 0.03 K/mm3 (0.00-0.031); Immature Granulocyte Percent A 0.3 % (0-0.5); Lymphocytes Absolute Auto 2.95 K/mm3 (0.9-3.2); Lymphocytes Percent Auto 31.2 % (18.3-44.2); Mean Corpuscular HGB Conc 30.9 g/dl (32-36); Mean Corpuscular Hemoglobin 25.7 pg (26-34); Mean Corpuscular Volume 83.1 fl (80-100); Mean Platelet Volume 9.4 fl (7.4-10.4); Monocytes Absolute Auto 0.4 K/mm3 (0.1-0.6); Monocytes Percent Auto 4.3 % (2.6-8.5); Neutrophils Absolute Auto 5.8 K/mm3 (1.3-6.7); Neutrophils Percent Auto 61.2 % (45.5-73.1); Platelet Count Result 420 k/mm3 (150-375); Red Blood Count 3.43 M/mm3 (4.2-5.4); Red Cell Distribution Width 19.9 % (11.5-14.5); White Blood Count 9.5 K/mm3 (4.5-10.0)
[2021-01-04 01:01] LABS: Alanine Aminotransferase 10 U/L (4-35); Alkaline Phosphatase 62 U/L (38-126); Anion Gap 10 mmol/L (8-16); Aspartate Amino Transferase 33 U/L (14-36); Bilirubin,Total 0.3 mg/dL (0.2-1.3); Blood Urea Nitrogen 18 mg/dL (7-17); Calcium 8.9 mg/dL (8.4-10.2); Carbon Dioxide 23 mmol/L (22-30); Chloride 105 mmol/L (98-107); Estimated CRCL calculation 126 ml/min; Estimated Glomerular Filt Rate > 60; Glucose 133 mg/dL (65-110); Potassium 3.6 mmol/L (3.4-5.0); Sodium 138 mmol/L (137-145)
[2021-01-04 01:06] LABS: Prothrombin Time 12.8 Seconds (11.1-14.7)
[2021-01-04 01:07] LABS: Partial Thromboplastin Time 27.9 SECONDS (22.3-36.8)
[2021-01-04] MEDS: SODIUM CHLORIDE 0.9% IV 2,000 ML 999 ML (19:56)
[2021-01-04] MEDS: SODIUM CHLORIDE 0.9% IV 1,000 ML 999 ML IV CONT (20:05)
[2021-01-04 20:07] LABS: Basophils Absolute Auto 0.1 K/mm3 (0.0-0.1); Basophils Percent Auto 0.5 % (0.2-1.2); Eosinophils Absolute Auto 0.3 K/mm3 (0-0.3); Eosinophils Percent Auto 1.8 % (0-4.4); Hematocrit 27.7 % (37.0-47.0); Hemoglobin 8.6 g/dL (12.0-15.0); Immature Granulocyte Absolute 0.05 K/mm3 (0.00-0.031); Immature Granulocyte Percent A 0.4 % (0-0.5); Lymphocytes Absolute Auto 3.35 K/mm3 (0.9-3.2); Lymphocytes Percent Auto 24.4 % (18.3-44.2); Mean Corpuscular Hemoglobin 25.8 pg (26-34); Mean Corpuscular Volume 83.2 fl (80-100); Mean Platelet Volume 9.4 fl (7.4-10.4); Monocytes Absolute Auto 0.6 K/mm3 (0.1-0.6); Monocytes Percent Auto 4.6 % (2.6-8.5); Neutrophils Absolute Auto 9.4 K/mm3 (1.3-6.7); Neutrophils Percent Auto 68.3 % (45.5-73.1); Platelet Count Result 427 k/mm3 (150-375); Red Blood Count 3.33 M/mm3 (4.2-5.4); Red Cell Distribution Width 19.9 % (11.5-14.5); White Blood Count 13.8 K/mm3 (4.5-10.0)
[2021-01-04] MEDS: TRANEXAMIC ACID 1,000 MG/10 ML AMPUL 1000 MG IV PUSH (20:16)
--- NOTE | 2021-01-04 21:15 | HP_ITS ---
This report was moved to the correct visit, [id number], on 2020. Original report was signed by Dr. Keshav Elise on 01/04/21 at 0544. H&P: HPI History of Present Illness Date/Time: 01/04/21 21:07 35 y/o who had twin delivery ( twin A, twin B) nearly 4 weeks ago. Had a postop hemorrhage and received 3 units PRBC. Has had several episodes of bleeding over the last day. Was triaged in ED last night, seen in the office today. Stood up this evening and blood ran down her legs. Has received IV fluids and TXA 1 gram IV so far in ED. Has not had COVID-19 vaccine. Twins are doing well. Bottle feeding. Chief Complaint: Bleeding Review of Systems Review of Systems: All systems reviewed & are unremarkable except as noted in HPI and below PMFSH Past Medical History Medical History History of gestational diabetes Surgical History Surgical History delivery delivered Family History Family History Other No pertinent family history Social History Social History Smoking status: Never smoker Substance use: never Gender identity (if verbalized by the patient): Female Spiritual care concerns: No Meds Home Medications and Allergies Home Medications Medication Instructions Recorded Confirmed Type PNV cmb#95-ferrous fumarate-FA 1 tablet PO DAILY 10/27/20 12/05/20 History [] ferrous sulfate [FeroSul] 325 mg PO DAILY 10/27/20 12/05/20 History hydrocodone-acetaminophen 1 tablet PO Q4H PRN #30 tablet 12/12/20 Rx Allergies Allergy/AdvReac Type Severity Reaction Status Date / Time No Known Allergies Allergy Verified 01/04/21 19:56 Vital Signs Vital Signs - 24 hr 01/04/21 00:05 01/04/21 01:45 Temperature 36.5 C Pulse Rate 73 100 Respiratory Rate 12 14 Blood Pressure 105/81 106/78 Pulse Oximetry 99 100 Exam Const: Orientation/consciousness: patient oriented x3 Other: Well-developed, well-nourished female in no acute distress. Neck: Thyroid: thyroid normal Lymphatic: no lymphadenopathy noted (in neck, axilla or inguinal nodes) Resp: Effort & Inspection: normal respiratory effort Auscultation: clear to auscultation bilaterally Cardio: Rate: regular rate Rhythm: regular rhythm Heart sounds: S1 normal heart sound present and S2 normal heart sound present GI: Other: ABD: Soft, nontender, nondistended. No guarding or rebound tenderness. No hepatosplenomegaly. Incision c/d/i, healing well. : General: Yes no CVA tenderness Other: Sitting in a pool of blood with at least 300 mL. Last time pad was changed was 1 hour ago. Back/Spine/Pelvis: Back: no CVA tenderness Skin: General skin exam: normal color and no rashes or lesions noted Neuro: General: patient oriented x3 Extrem: Other: Extremities: nontender with no edema Psych: Mental Status: mental status grossly normal Affect: normal affect H&P: Results Labs Labs: Short CBC 01/04/21 Range/Units 00:41 WBC Cancelled Hgb Cancelled Hct Cancelled Plt Count Cancelled BMP 01/04/21 00:41 Sodium Cancelled Potassium Cancelled Chloride Ca
[2021-01-04] MEDS: SODIUM CHLORIDE 0.9% IV 250 ML 30 ML IV CONT (21:28)
[2021-01-04] MEDS: TUBING, BLOOD SET 1 EACH XX (21:28)
[2021-01-04 21:29] LABS: Beta HCG Quantitative 17.77 mIU/ML
--- NOTE | 2021-01-04 21:34 | ED.FEMALEGU ---
HPI - Female Genitourinary General Chief complaint: Vaginal Bleeding Stated complaint: vaginal bleeding Time Seen by Provider: 01/04/21 19:50 Source: patient Mode of arrival: ambulatory Limitations: no limitations History of Present Illness HPI Narrative: 35-year-old female Delivered twins about 3 weeks ago and sounds like she had a vaginal delivery of the first 1 and a for the second 1 Complicated by hemorrhage requiring transfusion of I believe 3 units of blood at the time Apparently had been okay at her first follow-up Last night around 11 PM she started having some brisk bleeding She was seen in the ED and the bleeding had mostly stopped her vitals were okay and hemoglobin is trending up compared to delivery She was seen again in the office earlier today However tonight she sudden gush of vaginal bleeding with pooling of bright red blood She feels lightheaded and dizzy and anxious Related Data Home Medications Medication Instructions Recorded Confirmed PNV cmb#95-ferrous fumarate-FA 1 tablet PO DAILY 10/27/20 12/05/20 [] ferrous sulfate [FeroSul] 325 mg PO DAILY 10/27/20 12/05/20 Allergies Allergy/AdvReac Type Severity Reaction Status Date / Time No Known Allergies Allergy Verified 01/04/21 19:56 Review of Systems Review of Systems: All systems reviewed & are unremarkable except as noted in HPI and below Constitutional: Constitutional: Reports no additional constitutional complaints, Denies chills, Reports fatigue, Denies fever(s) and Denies headache(s) Eyes: Eyes: Reports no additional eye complaints and Denies change in vision ENT: Reports dizziness, Denies headache(s) and Denies sore throat Cardiovascular: Cardiovascular: Denies chest pain and Denies dyspnea Respiratory: Respiratory: Denies cough and Denies dyspnea Gastrointestinal: Gastrointestinal: Reports abdominal pain, Denies diarrhea and Denies vomiting Genitourinary: Genitourinary: Reports abnormal vaginal bleeding, Denies urinary frequency, Denies dysuria and Reports vaginal discharge Musculoskeletal: Musculoskeletal: Denies deformity, Denies arthralgias, Denies joint swelling and Denies numbness Integumentary/Breasts: Skin/Breast: Denies rash and Denies wounds Neurologic: Denies headache(s), Denies focal weakness and Denies numbness Psychiatric: Psychiatric: Reports no additional psychiatric complaints Endocrine: Endocrine: Reports no additional endocrine complaints Hematologic/Lymphatic: Hematologic/Lymphatic: Reports no additional hematologic/lymphatic complaints Allergic/Immunologic: Allergic/Immunologic: Reports no additional allergic/immunologic complaints [facility] Past Medical History Medical History History of gestational diabetes Surgical History Surgical History delivery delivered Family History Family History Other No pertinent family history Social History Social History Smoking status: Never smoker Substance use: never Gender identity (if verbalized by the patient): Female Spiritual care concerns: No Exam Const: General: cooperative, alert and ill appearing Orientation/consciousness: patient oriented x3 (alert) HENMT: Head: normal to inspection, normocephalic and atraumatic Ears: external ears normal General nose exam: no epistaxis Eyes: Conjunctivae: conjunctivae normal EOM: EOMs intact bilaterally Neck: Neck: normal visual inspection, supple and no JVD Resp: Effort & Inspection: normal respiratory effort Auscultation: no rales, no rhonchi, no wheezes and other (BS =) Cardio: Rate: regular rate Rhythm: regular rhythm Heart sounds: no murmurs GI: GI Palp: Yes Soft to palpation, No Tenderness to palpation present (GI), No
--- NOTE | 2021-01-04 21:44 | WPDANESEPPF ---
Anes - Initial Pre Proc Eval Procedure: Hysteroscopy, D&C Date/Time: 01/04/21 21:44 Surgeon: Arik Pre Op Diagnosis: vaginal bleeding Patient Data Age: 35 Gender: F Height: 1.7 m Weight: 85 kg Last Vital Signs Temp 36.7 C 01/04/21 21:23 Pulse 78 01/04/21 21:23 Resp 18 01/04/21 21:23 BP 119/70 01/04/21 21:23 Pulse Ox 100 01/04/21 21:23 Allergies Allergy/AdvReac Type Severity Reaction Status Date / Time No Known Allergies Allergy Verified 01/04/21 19:56 Home Medications Medication Instructions Recorded Confirmed Type PNV cmb#95-ferrous fumarate-FA 1 tablet PO DAILY 10/27/20 12/05/20 History [] ferrous sulfate [FeroSul] 325 mg PO DAILY 10/27/20 12/05/20 History hydrocodone-acetaminophen 1 tablet PO Q4H PRN #30 tablet 12/12/20 Rx Laboratory Tests 01/04/21 01/04/21 01/04/21 00:41 00:41 00:41 WBC 9.5 K/mm3 K/mm3 (4.5-10.0) RBC 3.43 M/mm3 L M/mm3 (4.2-5.4) Hgb 8.8 g/dL L g/dL (12.0-15.0) Hct 28.5 % L % (37.0-47.0) MCV 83.1 fl fl (80-100) MCH 25.7 pg L pg (26-34) MCHC 30.9 g/dl L g/dl (32-36) RDW 19.9 % H % (11.5-14.5) Plt Count 420 k/mm3 H D k/mm3 (150-375) MPV 9.4 fl fl (7.4-10.4) Immature Gran % (Auto) 0.3 % % (0-0.5) Neut % (Auto) 61.2 % % (45.5-73.1) Lymph % (Auto) 31.2 % % (18.3-44.2) [place] % (Auto) 4.3 % % (2.6-8.5) Eos % (Auto) 2.5 % % (0-4.4) Baso % (Auto) 0.5 % % (0.2-1.2) Lymph # (Auto) 2.95 K/mm3 K/mm3 (0.9-3.2) [place] # (Auto) 0.4 K/mm3 K/mm3 (0.1-0.6) Eos # (Auto) 0.2 K/mm3 K/mm3 (0-0.3) Baso # (Auto) 0.1 K/mm3 K/mm3 (0.0-0.1) Abs Immat Gran (auto) 0.03 K/mm3 K/mm3 (0.00-0.031) Absolute Neuts (auto) 5.8 K/mm3 K/mm3 (1.3-6.7) Absolute Nucleated RBC 0.0 K/mm3 K/mm3 (0.0-0.012) Nucleated RBC % 0.0 % % (0.0-0.2) PT 12.8 Seconds Seconds (11.1-14.7) INR 1.0 APTT 27.9 SECONDS SECONDS (22.3-36.8) Sodium 138 mmol/L mmol/L (137-145) Potassium 3.6 mmol/L mmol/L (3.4-5.0) Chloride 105 mmol/L mmol/L (98-107) Carbon Dioxide 23 mmol/L mmol/L (22-30) Anion Gap 10 mmol/L mmol/L (8-16) BUN 18 mg/dL H mg/dL (7-17) Creatinine 0.60 mg/dL L mg/dL (0.7-1.0) Estim Creat Clear Calc 126 ml/min ml/min Estimated GFR > 60 (59 - ) Glucose 133 mg/dL H mg/dL (65-110) Calcium 8.9 mg/dL mg/dL (8.4-10.2) Total Bilirubin 0.3 mg/dL mg/dL (0.2-1.3) AST 33 U/L U/L (14-36) ALT 10 U/L U/L (4-35) Alkaline Phosphatase 62 U/L U/L (38-126) Total Protein 7.0 g/dL g/dL (6.3-8.2) Albumin 4.0 g/dL g/dL (3.5-5.1) Beta HCG, Quant Blood Type Antibody Screen Crossmatch 01/04/21 01/04/21 01/04/21 00:41 19:58 19:58 WBC 13.8 K/mm3 H K/mm3 (4.5-10.0) RBC 3.33 M/mm3 L M/mm3 (4.2-5.4) Hgb 8.6 g/dL L g/dL (12.0-15.0) Hct 27.7 % L % (37.0-47.0) MCV 83.2 fl fl (80-100) MCH 25.8 pg L pg (26-34) MCHC 31.0 g/dl L g/dl (32-36) RDW 19.9 % H % (11.5-14.5) Plt Count 427 k/mm3 H k/mm3 (150-375) MPV 9.4 fl fl (7.4-10.4) Immature Gran % (Auto) 0.4 % % (0-0.5) Neut % (Auto) 68.3 % % (45.5-73.1) Lymph % (Auto) 24.4 % % (18.3-44.2) [place] % (Auto) 4.6 % % (2.6-8.5) Eos % (Auto) 1.8 % % (0-4.4) Baso % (Auto) 0.5 % % (0.2-1.2) Lymph # (Auto) 3.35 K/mm3 H K/mm3 (0.9-3.2) [place] # (Auto) 0.6 K/mm3 K/mm3 (0.1-0.6) Eos # (Auto) 0.3 K/mm3 K/mm3 (0-0.3) Bas
--- NOTE | 2021-01-04 22:20 | HP_ITS ---
This report was moved to the correct visit, [id number], on January 05, 2021. Original report was signed by Dr. Keshav Elise on 01/04/21 at 2220. History and Physical Update Update Date/Time: 01/04/21 22:20 History and Physical has been reviewed, including an updated exam of the patient. There are NO changes in the patient's condition. Risks, benefits, and alternatives have been discussed and questions answered. Patient agrees to proceed with procedure. This dictation may have been done utilizing a voice recognition system. Attempts have been made to correct errors. However, there may be uncorrected grammatical, spelling, and recognition errors present. Report Initialized date/time: Keshav Elise MD 01/04/21 / 2219 Electronically signed by: Keshav Elise MD 01/04/[address]19 [facility]
[2021-01-04] MEDS: LACTATED RINGERS 1,000 ML 30 ML IV CONT (22:57)
--- NOTE | 2021-01-04 23:05 | OP_ITS ---
This report was moved to the correct visit, [id number], on January 05, 2021. Original report was signed by Dr. Keshav Elise on 01/04/21 at 2307. Procedure Note - Detailed Date of Procedure 01/04/21 Pre-op Diagnosis Heavy vaginal bleeding Post-op Diagnosis same Procedure Performed Dilation and suction curettage Surgeon Keshav Elise MD Anesthesia general and local (1% lidocaine) Findings 100 mL clotted blood in vaginal vault. Cervix dilated at start of procedure. Products of conception and clotted blood noted. Description of Procedure The patient was taken to the operating room where she was prepared and draped in the usual sterile fashion in the dorsal lithotomy position. The bladder was drained with a red rubber catheter. A sterile speculum was placed into the vagina. Approximately 100 mL clotted blood was evacuated from the vaginal vault. The anterior lip of the cervix was grasped with a single-tooth tenaculum. Ten mL of 1% lidocaine was administered in a paracervical block. The cervix did not require dilation. The 8mm curved tip suction curette was advanced. Suction curettage was performed and products of conception were aspirated. Sharp curettage was then performed until a good uterine cry was noted. A final pass with the suction curette was made. The tenaculum was removed. Hemostasis was excellent. Sponge, lap, needle and instrument counts were correct. The patient was taken to the recovery room in stable condition. I was present and scrubbed for the entire procedure. Estimated Blood Loss 400 Drains No Packing No Pathology yes (endometrial curettings) Complications None Condition stable Disposition PACU This dictation may have been done utilizing a voice recognition system. Attempts have been made to correct errors. However, there may be uncorrected grammatical, spelling, and recognition errors present. Report Initialized date/time: Keshav Elise MD 01/04/21 / 2307 Electronically signed by: Keshav Elise MD 01/04/21 [id number]
[2021-01-05 00:05] VITALS: BP 110/69; PULSE 65; RESP 14; O2SAT 100
[2021-01-05 00:20] VITALS: BP 108/61; PULSE 62; RESP 16; TEMP 36.8; O2SAT 98
--- NOTE | 2021-01-05 00:20 | OBADM ---
This patient, Moni Tamayo, admitted to the OB room OB 2nd Floor Room 289 for observation. Patient/family oriented to hospital policies and general routines including ID bracelet, bed and alarms, visiting hours, pain management, procedures, bathroom and other care routines, personal items, smoking policy, room service/diet, and visiting hours. Patient/Family are encouraged to report perceived risks to care and to ask questions if they do not understand what they are told or what they should do.
[2021-01-05] MEDS: DEXTROSE 5%/0.45% SOD CHL 1,000 ML 125 ML IV CONT (00:50)
[2021-01-05 04:15] VITALS: BP 97/59; PULSE 74; RESP 16; TEMP 36.6; O2SAT 95
[2021-01-05 04:45] LABS: Basophils Percent Auto 0.1 % (0.2-1.2); Hematocrit 25.1 % (37.0-47.0); Hemoglobin 7.9 g/dL (12.0-15.0); Immature Granulocyte Absolute 0.04 K/mm3 (0.00-0.031); Immature Granulocyte Percent A 0.4 % (0-0.5); Lymphocytes Absolute Auto 1.01 K/mm3 (0.9-3.2); Lymphocytes Percent Auto 10.4 % (18.3-44.2); Mean Corpuscular HGB Conc 31.5 g/dl (32-36); Mean Corpuscular Hemoglobin 25.2 pg (26-34); Mean Corpuscular Volume 79.9 fl (80-100); Mean Platelet Volume 9.4 fl (7.4-10.4); Monocytes Absolute Auto 0.1 K/mm3 (0.1-0.6); Monocytes Percent Auto 0.6 % (2.6-8.5); Neutrophils Absolute Auto 8.6 K/mm3 (1.3-6.7); Neutrophils Percent Auto 88.5 % (45.5-73.1); Platelet Count Result 340 k/mm3 (150-375); Red Blood Count 3.14 M/mm3 (4.2-5.4); Red Cell Distribution Width 19.9 % (11.5-14.5); White Blood Count 9.7 K/mm3 (4.5-10.0)
--- NOTE | 2021-01-05 06:59 | PM.DS ---
DS: Admitting Diagnosis Discharge Date 01/05/2021 Admitting Diagnosis bleeding DS: Summary Hospital Course Hospital Course: the patient was admitted with vaginal bleeding less than 1 month out from delivery. She was seen the day before was some bleeding and was scheduled for an ultrasound the next day. She bled however night and underwent suction dilatation and curettage. She remained afebrile and vital signs were stable. She was up, voiding, eating, ambulating, and generally without complaints she will be discharged home and has [place] at home from her postoperative course. Time Spent with Patient Time attestation: Total time spent providing and/or coordinating discharge services: Exam Const: General: no acute distress Eyes: General: appearance normal, both eyes and all related structures Neck: Neck: supple and no JVD Thyroid: thyroid normal Resp: Effort & Inspection: normal respiratory effort Auscultation: clear to auscultation bilaterally Cardio: Rate: regular rate Rhythm: regular rhythm GI: Inspection: non-distended GI Palp: Yes Soft to palpation, No Tenderness to palpation present (GI) and No Guarding due to palpation present (GI) Auscultation: normal bowel sounds : General: Yes bladder normal to palpation External Female Exam: normal external appearance Speculum Exam - Vagina: normal vaginal discharge and No vaginal bleeding Speculum Exam - Cervix: nontender Bimanual exam- vagina & uterus: bladder normal to palpation and No Cervical tenderness present OB/external & speculum: No vaginal bleeding Skin: General skin exam: no rashes or lesions noted Extrem: General: normal to inspection and no edema Psych: Mental Status: mental status grossly normal Affect: normal affect DS: Data Data Completed and Pending Pending studies at discharge: Pending at discharge 01/04/21 22:48 Surgical [PTH] Routine Labs on day of discharge: Labs from last 24 hours 01/05/21 01/04/21 01/04/21 03:51 19:58 19:58 WBC 9.7 13.8 H RBC 3.14 L 3.33 L Hgb 7.9 L 8.6 L Hct 25.1 L 27.7 L MCV 79.9 L 83.2 MCH 25.2 L 25.8 L MCHC 31.5 L 31.0 L RDW 19.9 H 19.9 H Plt Count 340 427 H MPV 9.4 9.4 Immature Gran % (Auto) 0.4 0.4 Neut % (Auto) 88.5 H 68.3 Lymph % (Auto) 10.4 L 24.4 [place] % (Auto) 0.6 L 4.6 Eos % (Auto) 0.0 1.8 Baso % (Auto) 0.1 L 0.5 Lymph # (Auto) 1.01 3.35 H [place] # (Auto) 0.1 0.6 Eos # (Auto) 0.0 0.3 Baso # (Auto) 0.0 0.1 Abs Immat Gran (auto) 0.04 H 0.05 H Absolute Neuts (auto) 8.6 H 9.4 H Absolute Nucleated RBC 0.0 0.0 Nucleated RBC % 0.0 0.0 PT INR APTT Sodium Potassium Chloride Carbon Dioxide Anion Gap BUN Creatinine Estim Creat Clear Calc Estimated GFR Glucose Calcium Total Bilirubin AST ALT Alkaline Phosphatase Total Protein Albumin Beta HCG, Quant 17.77 Blood Type Antibody Screen Crossmatch 01/04/21 01/04/21 01/04/21 00:41 00:41 00:41 WBC RBC Hgb Hct MCV MCH MCHC RDW Plt Count MPV Immature Gran % (Auto) Neut % (Auto) Lymph % (Auto) [place] % (Auto) Eos % (Auto) Baso % (Auto) Lymph # (Auto) [place] # (Auto) Eos # (Auto) Baso # (Auto) Abs Immat Gran (auto) Absolute Neuts (auto) Absolute Nucleated RBC Nucleated RBC % PT 12.8 INR 1.0 APTT 27.9 Sodium 138 Potassium 3.6 Chloride 105 Carbon Dioxide 23 Anion Gap 10 BUN 18 H Creatinine 0.60 L Estim Creat Clear Calc 126 Estimated GFR > 60 Glucose 133 H Calcium 8.9 Total Bilirubin 0.3 AST 33 ALT 10 Alkaline Phosphatase 62 Total Protein 7.0 Albumin 4.0 Beta HCG, Quant Blood Type O Negative Antibody Screen Negative Crossmatch See Detail 01/04/21 00:41 WBC 9.5 RBC 3.43 L Hgb 8.8 L Hct 28.5 L MCV 83.1 MCH 2
--- NOTE | 2021-01-05 07:03 | PM.GYNPNOP ---
SECURITY SYSTEMS ENGINEER - A/P Postoperative Procedures: Procedures Operation Date: 01/04/21 22:30 Actual Procedure Side Surgeon p Suction Dilation and Curettage Not Applicable Keshav Elise MD Postoperative day: 1 Postoperative status: doing well Postoperative plan: routine post-op care, see orders, advance diet and discharge Time Spent With Patient Time: Total time spent is greater than 50% in coordination of care (as documented) at patient's floor/unit and/or counseling patient: Time with patient: 15 - 25 minutes SECURITY SYSTEMS ENGINEER- PN:Subj Post-Op Subjective Date/time seen: 01/05/21 07:03 Subjective: patient reports feeling better, patient has no complaints and patient desires discharge Review of Systems Review of Systems: All systems reviewed & are unremarkable except as noted in HPI and below Exam Const: General: no acute distress Eyes: General: appearance normal, both eyes and all related structures Neck: Neck: supple and no JVD Thyroid: thyroid normal Resp: Effort & Inspection: normal respiratory effort Auscultation: clear to auscultation bilaterally Cardio: Rate: regular rate Rhythm: regular rhythm GI: Inspection: non-distended GI Palp: Yes Soft to palpation, No Tenderness to palpation present (GI) and No Guarding due to palpation present (GI) Auscultation: normal bowel sounds : General: Yes bladder normal to palpation External Female Exam: normal external appearance Speculum Exam - Vagina: normal vaginal discharge and No vaginal bleeding Speculum Exam - Cervix: nontender Bimanual exam- vagina & uterus: bladder normal to palpation and No Cervical tenderness present OB/external & speculum: No vaginal bleeding Skin: General skin exam: no rashes or lesions noted Extrem: General: normal to inspection and no edema Psych: Mental Status: mental status grossly normal Affect: normal affect SECURITY SYSTEMS ENGINEER - PN: Obj Data Vital Signs Vital Signs: Vital Signs - 24 hr 01/04/21 19:48 01/04/21 21:08 01/04/21 21:23 Temperature 98.2 F 98.1 F 98.1 F Pulse Rate 78 88 78 Respiratory Rate 18 18 18 Blood Pressure 108/55 L 125/80 119/70 Pulse Oximetry 100 100 100 01/04/21 22:23 01/04/21 22:57 01/04/21 23:10 Temperature 98.2 F 97.7 F Pulse Rate 77 82 60 Respiratory Rate 18 13 13 Blood Pressure 135/76 107/61 99/64 L Pulse Oximetry 100 100 100 01/04/21 23:23 01/04/21 23:25 01/04/21 23:35 Temperature 97.0 F L Pulse Rate 63 68 66 Respiratory Rate 15 18 16 Blood Pressure 102/58 L 106/65 98/48 L Pulse Oximetry 100 100 100 01/04/21 23:45 01/04/21 23:50 01/05/21 00:05 Temperature 97.3 F L Pulse Rate 66 61 65 Respiratory Rate 14 14 14 Blood Pressure 107/69 108/56 L 110/69 Pulse Oximetry 100 100 100 01/05/21 00:20 01/05/21 04:15 Temperature 98.2 F 97.8 F Pulse Rate 62 74 Respiratory Rate 16 16 Blood Pressure 108/61 97/59 L Pulse Oximetry 98 95 Intake/Output Intake/Output: Intake & Output 01/02/21 01/03/21 01/04/21 01/05/21 23:59 23:59 23:59 23:59 Intake Total 3585 100 Output Total 20 Balance 3565 100 Meds/Results Medications: Active Medications Generic Name Dose Route Start Last Admin Trade Name Freq PRN Reason Stop Dose Admin Fentanyl Citrate 25 mcg 01/04/21 00:27 Fentanyl Citrate Inj (*Crx) 100 Mcg/2 Ml Vial IV PUSH Q2M PRN Pain Dextrose/Sodium Chloride 1,000 mls @ 125 mls/hr 01/05/21 00:09 01/05/21 00:50 Dextrose 5% Sodium Chloride 0.45% IV CONT 125 mls/hr .Q8H MAURICE Administration Lactated Ringer's 1,000 mls @ 30 mls/hr 01/04/21 22:25 01/05/21 02:07 Lr - Lactated Ringers Iv IV CONT Not Given .Q24H MAURICE Ibuprofen 600 mg 01/04/21 23:27 Ibuprofen 600 Mg Tablet PO Q6H PRN Cramping Ondansetron HCl 4 mg 01/04/21 00:27 Ondansetron Inj 4 Mg/2 Ml Vial IV PUSH ONCE PRN Nausea Labs CBC & Chem 7: 01/05/21 03:51 01/04/21 00:41 Labs: Laboratory Results - last 24 hr 01/04/21 01/04/21
--- NOTE | 2021-01-05 08:39 | WPDANESPN ---
Anes - Prog Note Post-Op Date/Time: 01/05/21 08:39 Cardiovascular status: normal Respiratory status: normal Airway patency: baseline Mental status: baseline Post-Op hydration status: normal Vital Signs: Last Vital Signs Temp 97.8 F 01/05/21 04:15 Pulse 74 01/05/21 04:15 Resp 16 01/05/21 04:15 BP 97/59 L 01/05/21 04:15 Pulse Ox 95 01/05/21 04:15 Pain Score (VAS): 04/24 I/O: Intake & Output 01/04/21 01/05/21 01/05/21 23:59 07:59 15:59 Intake Total 3585 100 900 Output Total 20 Balance 3565 100 900 Laboratory Tests 01/05/21 03:51 01/04/21 00:41 01/04/21 01/04/21 01/04/21 00:41 00:41 00:41 WBC 9.5 RBC 3.43 L Hgb 8.8 L Hct 28.5 L MCV 83.1 MCH 25.7 L MCHC 30.9 L RDW 19.9 H Plt Count 420 H D MPV 9.4 Immature Gran % (Auto) 0.3 Neut % (Auto) 61.2 Lymph % (Auto) 31.2 [place] % (Auto) 4.3 Eos % (Auto) 2.5 Baso % (Auto) 0.5 Lymph # (Auto) 2.95 [place] # (Auto) 0.4 Eos # (Auto) 0.2 Baso # (Auto) 0.1 Abs Immat Gran (auto) 0.03 Absolute Neuts (auto) 5.8 Absolute Nucleated RBC 0.0 Nucleated RBC % 0.0 PT 12.8 INR 1.0 APTT 27.9 Sodium 138 Potassium 3.6 Chloride 105 Carbon Dioxide 23 Anion Gap 10 BUN 18 H Creatinine 0.60 L Estim Creat Clear Calc 126 Estimated GFR > 60 Glucose 133 H Calcium 8.9 Total Bilirubin 0.3 AST 33 ALT 10 Alkaline Phosphatase 62 Total Protein 7.0 Albumin 4.0 Beta HCG, Quant Blood Type Antibody Screen Crossmatch 01/04/21 01/04/21 01/04/21 00:41 19:58 19:58 WBC 13.8 H RBC 3.33 L Hgb 8.6 L Hct 27.7 L MCV 83.2 MCH 25.8 L MCHC 31.0 L RDW 19.9 H Plt Count 427 H MPV 9.4 Immature Gran % (Auto) 0.4 Neut % (Auto) 68.3 Lymph % (Auto) 24.4 [place] % (Auto) 4.6 Eos % (Auto) 1.8 Baso % (Auto) 0.5 Lymph # (Auto) 3.35 H [place] # (Auto) 0.6 Eos # (Auto) 0.3 Baso # (Auto) 0.1 Abs Immat Gran (auto) 0.05 H Absolute Neuts (auto) 9.4 H Absolute Nucleated RBC 0.0 Nucleated RBC % 0.0 PT INR APTT Sodium Potassium Chloride Carbon Dioxide Anion Gap BUN Creatinine Estim Creat Clear Calc Estimated GFR Glucose Calcium Total Bilirubin AST ALT Alkaline Phosphatase Total Protein Albumin Beta HCG, Quant 17.77 Blood Type O Negative Antibody Screen Negative Crossmatch See Detail 01/05/21 03:51 WBC 9.7 RBC 3.14 L Hgb 7.9 L Hct 25.1 L MCV 79.9 L MCH 25.2 L MCHC 31.5 L RDW 19.9 H Plt Count 340 MPV 9.4 Immature Gran % (Auto) 0.4 Neut % (Auto) 88.5 H Lymph % (Auto) 10.4 L [place] % (Auto) 0.6 L Eos % (Auto) 0.0 Baso % (Auto) 0.1 L Lymph # (Auto) 1.01 [place] # (Auto) 0.1 Eos # (Auto) 0.0 Baso # (Auto) 0.0 Abs Immat Gran (auto) 0.04 H Absolute Neuts (auto) 8.6 H Absolute Nucleated RBC 0.0 Nucleated RBC % 0.0 PT INR APTT Sodium Potassium Chloride Carbon Dioxide Anion Gap BUN Creatinine Estim Creat Clear Calc Estimated GFR Glucose Calcium Total Bilirubin AST ALT Alkaline Phosphatase Total Protein Albumin Beta HCG, Quant Blood Type Antibody Screen Crossmatch Post-procedural complaints: none Patient Feedback: Patient satisfied with anesthetic care.
[2021-01-05 08:40] VITALS: BP 101/46; PULSE 64; RESP 16; TEMP 36.3; O2SAT 100
== END 2021-01-05 10:30 | disposition home or self-care (01) ==
LOC: ANHED 21:43 → ANHOB2 01-05 07:01
PROVIDERS: Admitting Provider Obstetrics & Gynecology; Emergency Provider Emergency Medicine; Visit Provider Obstetrics & Gynecology
PROC: 0U5B8ZZ Destruction of Endometrium, Via Natural or Artificial Opening Endoscopic (ICD-10-PCS; CPT 58563; principal; 2021-01-04 22:30)
DX: O72.2 Delayed and secondary postpartum hemorrhage (principal)
CPT/HCPCS: 59160; 36415; 36430; 80053; 84702; 85025; 85610; 85730; 86850; 86900; 86901; 86920; 88305; 96361; 96374; 99285; G0378; J0330; J1100; J2001; J2250; J2405; J2704; J3010; J7030; J7050; J7120; P9016

== ENCOUNTER 2021-04-20 14:37 | Outpatient (CLI) | payer OTHER, SELFPAY ==
[2021-04-20 15:37] LABS: Basophils Absolute Auto 0.1 K/mm3 (0.0-0.1); Basophils Percent Auto 0.6 % (0.2-1.2); Eosinophils Absolute Auto 0.3 K/mm3 (0-0.3); Eosinophils Percent Auto 3.1 % (0-4.4); Hemoglobin 8.9 g/dL (12.0-15.0); Immature Granulocyte Absolute 0.02 K/mm3 (0.00-0.031); Immature Granulocyte Percent A 0.2 % (0-0.5); Lymphocytes Absolute Auto 2.89 K/mm3 (0.9-3.2); Lymphocytes Percent Auto 31.9 % (18.3-44.2); Mean Corpuscular HGB Conc 29.7 g/dl (32-36); Mean Corpuscular Volume 70.9 fl (80-100); Mean Platelet Volume 9.4 fl (7.4-10.4); Monocytes Absolute Auto 0.5 K/mm3 (0.1-0.6); Monocytes Percent Auto 5.5 % (2.6-8.5); Neutrophils Absolute Auto 5.3 K/mm3 (1.3-6.7); Neutrophils Percent Auto 58.7 % (45.5-73.1); Platelet Count Result 471 k/mm3 (150-375); Red Blood Count 4.23 M/mm3 (4.2-5.4); Red Cell Distribution Width 20.1 % (11.5-14.5); White Blood Count 9.1 K/mm3 (4.5-10.0)
[2021-04-20 16:16] LABS: Hypochromasia 1+ (NORMAL); Platelet Estimate Increased (Adequate)
[2021-04-20 16:17] LABS: Anisocytosis 3+ (NORMAL)
== END 2021-04-20 14:38 | disposition home or self-care (01) ==
PROVIDERS: Visit Provider Obstetrics & Gynecology
DX: Z01.818 Encounter for other preprocedural examination (principal); N92.6 Irregular menstruation, unspecified
CPT/HCPCS: 36415; 85025; 86850; 86900; 86901

== ENCOUNTER 2021-04-21 02:24 | Day surgery (SDC) | payer OTHER, SELFPAY ==
[2021-04-13 11:34] VITALS: BMI 28.1
--- NOTE | 2021-04-13 11:54 | PC.NURSE ---
Report to the Outpatient Waiting Room, entrance under the green pavilion located off [facility], at time 0600 on date 04/21/21. OR Time: 0730. - You will be asked a series of questions to screen for COVID 19 for your protection. - A mask is required within the hospital. - No visitors are allowed at this time. Preoperative COVID Testing Requirements: E-MAIL POSITIVE RESULTS FROM 04/11 No COVID Test needed if: (proof is required; if not received patient will have Rapid Test prior to entry) - Patient has received COVID Vaccine at least 14 days prior to procedure date or - Patient has positive COVID test result within last 90 days of surgery date. COVID Test needed if above criteria is not met If not COVID vaccinated a COVID test must be conducted within 72 hours of surgery and patient is asked to isolate self from time of testing until procedure. You will go to the [facility] for your COVID testing. The [facility] is located at the corner of [address] from [facility]. You will only be called if COVID results are positive and your surgeon may reschedule your elective surgery date. Patients may have clear liquids (water, carbonated beverages, clear teas, apple juice) until 3 hours prior to surgery with a maximum of 20 ounces. - No food from midnight until time of surgery Take the following medications with a SIP of water the morning of surgery: NONE Medications to discontinue per physician: VITAMINS/SUPPLEMENTS Date to take last dose: 04/17/21 Please no make-up, nail lao, hairspray, perfume, deodorant, or body powder the day of surgery. No jewelry (including any body piercings) or valuables the day of surgery, leave them at home. Please take a shower or bath the night before, or the morning of, surgery with an antibacterial soap. Wear comfortable, loose fitting clothing. - Jewelry must be removed prior to entering the operating room. Rings and piercings that are not removed may be cut off. - The hospital will not accept responsibility for valuables. - Please leave all valuables, including medications, at home the day of surgery. If you are going home after surgery, a licensed backhaul driver must drive you home. STAYING OVERNIGHT - NO public transportation without another adult. - We recommend that an adult stay with you for 24 hours following discharge. - We also recommend that you do not drive, make important decision, drink alcoholic beverages, or take any drugs that were not prescribed by your health care provider for at least 24 hours after your discharge time. Follow any additional instructions given to you from your surgeon. Telephone instructions given to TAYLA CASAREZ and asked if any additional questions and then verbalized understanding. Patient advised to call surgeon office or pre surgery nurse liaison [phone] if any additional questions.
--- NOTE | 2021-04-19 06:34 | PM.IMHP ---
H&P: HPI History of Present Illness Date/Time: 04/19/21 06:34 36-year-old 2 para 2 admitted for robotic total vaginal hysterectomy and bilateral salpingectomy secondary to excessive heavy bleeding refractory to medical therapy. We discussed ablation versus hysterectomy. She opts for definitive therapy via hysterectomy. Risks and benefits reviewed including but not exclusive of , aspiration pneumonia, bleeding, transfusion, perforation injury to bowel, bladder, ureters, or other internal organs with need for open laparotomy. She received the [employer] handout entitled hysterectomy as well as the [facility] handout. She had all questions answered and asked to proceed Chief Complaint: bleeding refractory to medical therapy Review of Systems Review of Systems: All systems reviewed & are unremarkable except as noted in HPI and below PMFSH Past Medical History Medical History History of gestational diabetes hemorrhage Surgical History Surgical History delivery delivered Family History Family History Other No pertinent family history Social History Social History Smoking packs per day: 0.5 Smoking cigarettes per day: 10.0 Years smoked: 10 Smoking pack-years: 5.00 Smoking status: Former smoker Tobacco type: cigarettes Smoking end date: 04/15/17 Alcohol intake: never Substance use: never Substance use type: does not use Gender identity (if verbalized by the patient): Female Spiritual care concerns: No Meds Home Medications and Allergies Home Medications Medication Instructions Recorded Confirmed Type ferrous sulfate [FeroSul] 325 mg PO DAILY 10/27/20 04/13/21 History Allergies Allergy/AdvReac Type Severity Reaction Status Date / Time No Known Allergies Allergy Verified 04/13/21 11:30 Exam Const: General: no acute distress Eyes: General: appearance normal, both eyes and all related structures Neck: Neck: supple and no JVD Thyroid: thyroid normal Resp: Effort & Inspection: normal respiratory effort Auscultation: clear to auscultation bilaterally Cardio: Rate: regular rate Rhythm: regular rhythm GI: Inspection: non-distended GI Palp: Yes Soft to palpation, No Tenderness to palpation present (GI) and No Guarding due to palpation present (GI) Auscultation: normal bowel sounds : External Female Exam: normal external appearance Speculum Exam - Vagina: normal appearance of the vagina Speculum Exam - Cervix: normal appearance of the cervix Bimanual exam- vagina & uterus: enlarged Bimanual Exam- Adnexa, other: normal adnexae Skin: General skin exam: no rashes or lesions noted Extrem: General: normal to inspection and no edema Psych: Mental Status: mental status grossly normal Affect: normal affect Assessment and Plan Additional Plan impression: Enlarged uterus with bleeding refractory to medical therapy Plan: Robotic total vaginal hysterectomy bilateral salpingectomy
--- NOTE | 2021-04-20 12:55 | P.PNAN_ITS ---
Anes - Initial Pre Proc Eval Procedure: Operation Date: 04/21/21 07:30 Proposed Procedures p Robotic Assisted Total Vaginal Hysterectomy with Bilateral Salpingectomy - Amarjit Shi MD Date/Time: 04/20/21 12:55 Surgeon: Amarjit Shi MD Pre Op Diagnosis: irregular bleeding, pelvic pain, anemia Patient Data Age: 36 Gender: F Height: 1.7 m Weight: 81.65 kg Allergies Allergy/AdvReac Type Severity Reaction Status Date / Time No Known Allergies Allergy Verified 04/13/21 11:30 Home Medications Medication Instructions Recorded Confirmed Type ferrous sulfate [FeroSul] 325 mg PO DAILY 10/27/20 04/13/21 History Results Review: All pre-operative results and documents have been reviewed as part of the pre-operative evaluation. [facility] Past Medical History Medical History (Updated 04/20/21 @ 12:56 by Pato Chandler MD) Anemia Anxiety Depression History of gestational diabetes hemorrhage Surgical History Surgical History delivery delivered Family History Family History Other No pertinent family history Social History Social History Smoking packs per day: 0.5 Smoking cigarettes per day: 10.0 Years smoked: 10 Smoking pack-years: 5.00 Smoking status: Former smoker Tobacco type: cigarettes Smoking end date: 04/15/17 Alcohol intake: never Substance use: never Substance use type: does not use Gender identity (if verbalized by the patient): Female Spiritual care concerns: No Anes - Eval Final PreProcedure Day of Procedure 04/20/21 12:55 Results Review: All pre-operative results and documents have been reviewed as part of the pre-operative evaluation. Informed Consent: The patient's anesthetic plan and its attendant risks and benefits were discussed with the patient/family/POA. Questions were solicited and answers provided to the satisfaction of the patient/family/POA.
[2021-04-21] VITALS (11 sets, daily range): BP systolic 107–118; BP diastolic 59–73; PULSE 50–76; RESP 11–20; TEMP 36.1–37.4; O2SAT 97–100; BMI 25.7
[2021-04-21] MEDS: KETOROLAC 15 MG/ML VIAL (*BKC) IV PUSH (06:51)
[2021-04-21] MEDS: LACTATED RINGERS 1,000 ML 30 ML IV CONT ×2 (06:51→09:02)
[2021-04-21] MEDS: ACETAMINOPHEN 500 MG TABLET 1000 MG PO (06:51)
--- NOTE | 2021-04-21 07:05 | WPDHPUPDATE1 ---
History and Physical Update Update Date/Time: 04/21/21 07:05 History and Physical has been reviewed, including an updated exam of the patient. There are NO changes in the patient's condition. Risks, benefits, and alternatives have been discussed and questions answered. Patient agrees to proceed with procedure.
--- NOTE | 2021-04-21 07:10 | P.PNAN_ITS ---
Anes - Initial Pre Proc Eval Procedure: Operation Date: 04/21/21 07:30 Proposed Procedures p Robotic Assisted Total Vaginal Hysterectomy with Bilateral Salpingectomy - Amarjit Shi MD Date/Time: 04/21/21 07:10 Surgeon: Amarjit Shi MD Pre Op Diagnosis: irregular bleeding, pelvic pain, anemia Patient Data Age: 36 Gender: F Height: 1.7 m Weight: 74.4 kg Last Vital Signs Temp 37.4 C 04/21/21 06:39 Pulse 68 04/21/21 06:39 Resp 16 04/21/21 06:39 BP 109/59 L 04/21/21 06:39 Pulse Ox 100 04/21/21 06:39 Allergies Allergy/AdvReac Type Severity Reaction Status Date / Time No Known Allergies Allergy Verified 04/21/21 06:35 Home Medications Medication Instructions Recorded Confirmed Type ferrous sulfate [FeroSul] 325 mg PO DAILY 10/27/20 04/21/21 History hydrocodone-acetaminophen 1 tablet PO Q4H PRN #30 tablet 04/21/21 Rx Patient hx anesthesia problems: none Family hx anesthesia problems: none Results Review: All pre-operative results and documents have been reviewed as part of the pre-operative evaluation. [facility] Past Medical History Medical History Anemia Anxiety Depression History of gestational diabetes hemorrhage Surgical History Surgical History delivery delivered Family History Family History Other No pertinent family history Social History Social History Smoking packs per day: 0.5 Smoking cigarettes per day: 10.0 Years smoked: 10 Smoking pack-years: 5.00 Smoking status: Former smoker Tobacco type: cigarettes Smoking end date: 04/15/17 Alcohol intake: never Substance use: never Substance use type: does not use Living arrangements: with family Gender identity (if verbalized by the patient): Female Spiritual care concerns: No Anes - Eval Final PreProcedure Day of Procedure 04/21/21 07:10 Patient weight: normal Heart: regular rate and rhythm Lungs: clear to auscultation Airway: Mallampati scale class II Neurological: alert and oriented Last oral intake: >/= 8 hours ASA classification: II Emergent: no Anesthetic plan: proceed Anesthesia type and monitoring: general ETT and standard monitoring Results Review: All pre-operative results and documents have been reviewed as part of the pre-operative evaluation. Informed Consent: The patient's anesthetic plan and its attendant risks and benefits were discussed with the patient/family/POA. Questions were solicited and answers provided to the satisfaction of the patient/family/POA.
[2021-04-21] MEDS: ceFAZolin 2 GM/D5W 50 ML 2 GM/50 ML BAG IVPB (07:30)
--- NOTE | 2021-04-21 08:49 | W.PM.PROC2 ---
Procedure Note - Detailed Date of Procedure 04/21/21 Pre-op Diagnosis irregular bleeding, pelvic pain, anemia Post-op Diagnosis same Procedure Performed Robotic total vaginal hysterectomy and bilateral salpingectomies Surgeon Amarjit Shi MD Anesthesia general Indications This is a 36-year-old female with irregular bleeding pain and severe anemia refractory to medical therapy Findings Enlarged uterus normal-appearing ovaries and tubes Description of Procedure Patient was prepped draped in the normal sterile fashion placed in dorsal lithotomy position. Under excellent general trach anesthesia weighted speculum placed in posterior fornix vagina. Anterior lip of the cervix grasped with single-tooth tenaculum the uterus sounded to 10cm. Serial dilatation with fragmented dilators performed followed by passage of the 10. AGUTSÍN and the 3. Cold cup. A 16 Sami catheter was placed in the bladder and the single-tooth and weighted speculum removed. The gloves were changed A supraumbilical incision made the Veress needle passed in the abdomen. The abdomen filled with CO2 gas to 15mm Hg. The 8mm trocar advanced in the abdomen the downside visualized with no injury seen. Patient placed in Trendelenburg and right left lateral quadrant incisions made. The 8mm trocars advanced under direct visualization assuring no injury. Right upper quadrant incision made and the 8mm trocar advanced under direct visualization assuring no injury. The robot was docked Attention was turned to the console. The left round ligament grasped, burned, cut. Anteriorly a bladder flap was formed by sharply dissecting the peritoneum and reflecting the bladder caudally away from the cervix and uterus to the opposite round ligament which was clamped, burned, cut. Next the left fallopian tube was sharply dissected using monopolar cautery away from the ovarian complex and left attached at its or origination at the uterus. In like fashion the right fallopian tube was removed in the same fashion and allowed to remain at the origination of the uterus. The left utero-ovarian ligament was skeletonized to conserve the left ovary this was clamped, burned, cut and brought to the level of the previously cut round ligament. The right ovary was conserved by clamping burning and cutting the utero-ovarian ligament on the right clamping burning and cutting until meeting previous round ligament incision. The cardinal and broad ligaments on the left were then serially skeletonized and brought down the lateral edge of the uterus and cervix these were clamped, burned, cut until the uterine vessels could be seen on the left. These were large and tortuous as expected they were individually clamped, burned, cut. In like fashion the right cardinal and broad ligaments were skeletonized sliding along cervix and uterus hugging them clamping burning and cutting until the uterine vessels could be seen on the right. These were individually clamped, burned, cut. Good blanching was seen in a colpotomy incision was made. The cervix uterus and tubes removed through the vagina in toto. Blood loss estimated 25cc. The vagina was closed with continuous running 0V lock from lateral edge to lateral edge and back to the midline. Irrigation undertaken until clear and all pedicles appeared dry. The raw surface areas were sprinkled with Hemaderm and the robot was undocked. The gas removed from the abdomen and the trocars removed with the incisions closed with 4-0 Monocryl and glue. The patient was awakened and went to recovery in satisfactory condition. All sponge, needle, instrument counts were correct. There were no immediate complications noted Estimated Blood Loss 25 Drains No Packing No Pathology yes Complications No immediate complications Condition stable Disposition PACU
[2021-04-21] MEDS: fentaNYL CITRATE INJ (*CRX) 100 MCG/2 ML VIAL 25 MCG IV PUSH ×6 (09:17→10:33)
--- NOTE | 2021-04-21 10:03 | SUR.PHASEI ---
sbar faxed now waiting for the nurse to call for report.
--- NOTE | 2021-04-21 10:39 | PC.NURSE ---
This patient, Moni Tamayo, was received from PACU per bed on 04/21/21 at 1039. Patient oriented to unit policies and routines
[2021-04-21] MEDS: DEXTROSE 5%/LACTATED RINGERS 1,000 ML 125 ML IV CONT ×2 (10:48→17:53)
[2021-04-21] MEDS: IBUPROFEN 600 MG TABLET PO (13:23)
[2021-04-21] MEDS: DOCUSATE SODIUM 100 MG CAPSULE PO (13:23)
[2021-04-21] MEDS: HYDROcodone/acetaminophen (*CRX) 5-325 MG TABLET 1 TAB PO (13:23)
[2021-04-21] MEDS: HYDROcodone/acetaminophen (*CRX) 10-325 MG TABLET 1 TAB PO (16:44)
[2021-04-21] MEDS: diphenhydrAMINE HCl INJ 50 MG/ML VIAL 25 MG IV PUSH ×2 (17:47→22:01)
[2021-04-21] MEDS: predniSONE 20 MG TABLET 40 MG PO (19:10)
--- NOTE | 2021-04-21 19:11 | PC.NURSE ---
1725: Pt called out c/o itching. 1744: Pt called out c/o that her whole face was itching, her eyes felt swollen, c/o nasal stuffiness, throat fullness/pain, and tongue fullness. 1745: RN entered room to check on pt. Pt voiced the above complaints and stated that she could not breathe through her nose and her tongue and throat feel full and hurt in the back. Pt is in no apparent distress with breathing through her mouth, but is unable to pass air through her nose. Placed 10L O2 per nonrebreather mask on pt. since she could not use a nasal cannula. Cool, moist washcloth applied to eyes for swelling. Pt VS stable. Pulse ox 100% consistently. Pt able to talk and communicate her discomforts. 1748: BP: 101/60, HR 58, RR 22, Pulse ox 100%. Stayed with pt for the next 10 minutes and conversed with pt. 1800: Pt pulse ox 100% continuously, eyes still swollen, freshened cool wash cloth. Pt resting comfortably with O2 mask in place. 1820: Introduced night nurse Reina Banerjee to pt and pt able to hold on conversation without difficulty. Pt states her tongue and throat are feeling less swollen and full and itching has dissipated. Pt is able to blow her nose and pass air through both nostrils. Pt's eyes are still swollen shut. Moist washcloth freshened up for pt. Pt desires to keep O2 mask in place for comfort.
[2021-04-21] MEDS: KETOROLAC 30 MG/ML VIAL (*BKC) IV PUSH (21:55)
[2021-04-22 05:30] VITALS: BP 95/59; PULSE 63; RESP 16; TEMP 36.7
[2021-04-22] MEDS: SIMETHICONE 80 MG TAB.CHEW PO ×3 (05:37→09:45)
[2021-04-22] MEDS: KETOROLAC 30 MG/ML VIAL (*BKC) IV PUSH (05:37)
[2021-04-22 05:43] LABS: Hematocrit 28.5 % (37.0-47.0); Hemoglobin 8.5 g/dL (12.0-15.0); Immature Granulocyte Absolute 0.05 K/mm3 (0.00-0.031); Immature Granulocyte Percent A 0.4 % (0-0.5); Lymphocytes Percent Auto 7.1 % (18.3-44.2); Mean Corpuscular HGB Conc 29.8 g/dl (32-36); Mean Corpuscular Hemoglobin 20.9 pg (26-34); Mean Corpuscular Volume 70.2 fl (80-100); Mean Platelet Volume 9.6 fl (7.4-10.4); Monocytes Absolute Auto 0.1 K/mm3 (0.1-0.6); Neutrophils Absolute Auto 10.4 K/mm3 (1.3-6.7); Neutrophils Percent Auto 91.5 % (45.5-73.1); Platelet Count Result 434 k/mm3 (150-375); Red Blood Count 4.06 M/mm3 (4.2-5.4); Red Cell Distribution Width 19.9 % (11.5-14.5); White Blood Count 11.3 K/mm3 (4.5-10.0)
--- NOTE | 2021-04-22 08:48 | PM.GYNPNOP ---
PACKER INSPECTOR - A/P Postoperative Procedures: Procedures Operation Date: 04/21/21 07:30 Actual Procedure Side Surgeon p Robotic Assisted Total Vaginal Hysterectomy with Bilateral Salpingectomy Bilateral Amarjit Shi MD A: POD#1, doing well. P: Home to f/u 2 weeks. Time Spent With Patient Time with patient: 15 - 25 minutes PACKER INSPECTOR- PN:Subj Post-Op Subjective Date/time seen: 04/22/21 08:48 Interval history: Pain OK. Tolerating diet. Voiding. Had an episode of swelling yesterday thought to be related to [place]. Feels much better today. She has used Tramadol in the past and would like to try that. Would like to go home. Exam Narrative: AVSS I/O OK ABD soft, nontender. Incisions c/d/i. EXT nontender PACKER INSPECTOR - PN: Obj Data Vital Signs Vital Signs: Vital Signs - 24 hr 04/21/21 09:01 04/21/21 09:15 04/21/21 09:30 Temperature 36.6 C Pulse Rate 65 64 66 Respiratory Rate 16 14 13 Blood Pressure 118/73 115/67 114/69 Pulse Oximetry 100 100 100 04/21/21 09:45 04/21/21 10:00 04/21/21 10:15 Temperature Pulse Rate 51 L 55 L 52 L Respiratory Rate 11 L 12 13 Blood Pressure 110/64 117/71 109/65 Pulse Oximetry 100 97 100 04/21/21 10:30 04/21/21 10:42 04/21/21 16:45 Temperature 36.1 C L 36.6 C Pulse Rate 50 L 67 63 Respiratory Rate 12 18 20 Blood Pressure 112/73 113/69 107/69 Pulse Oximetry 100 100 04/21/21 19:13 04/22/21 05:30 Temperature 36.7 C 36.7 C Pulse Rate 76 63 Respiratory Rate 20 16 Blood Pressure 112/69 95/59 L Pulse Oximetry 100 Intake/Output Intake/Output: Intake & Output 04/19/21 04/20/21 04/21/21 04/22/21 23:59 23:59 23:59 23:59 Intake Total 1700 Output Total 740 Balance 960 Meds/Results Medications: Active Medications Generic Name Dose Route Start Last Admin Trade Name Freq PRN Reason Stop Dose Admin Diphenhydramine HCl 25 mg 04/21/21 17:37 04/21/21 22:01 Diphenhydramine Hcl Inj 50 Mg/Ml Vial IV PUSH 25 mg Q4H PRN Administration Itching Docusate Sodium 100 mg 04/21/21 10:34 04/21/21 17:53 Docusate Sodium 100 Mg Capsule PO Not Given BID MAURICE Enoxaparin Sodium 40 mg 04/22/21 07:00 Enoxaparin 40 Mg/0.4 Ml Syringe SUB-Q Q24H MAURICE Ibuprofen 600 mg 04/21/21 10:34 04/21/21 13:23 Ibuprofen 600 Mg Tablet PO 600 mg Q6H PRN Administration Cramping Ketorolac Tromethamine 30 mg 04/21/21 10:34 04/22/21 05:37 Ketorolac 30 Mg/Ml Vial (*Bkc) IV PUSH 04/26/21 10:33 30 mg Q6H PRN Administration Pain Rated 4-6 Naloxone HCl 0.1 mg 04/21/21 10:34 Naloxone Hcl 0.4 Mg/Ml Vial IV PUSH Q2M PRN Respiratory rate less than 10 Ondansetron HCl 4 mg 04/21/21 10:34 Ondansetron Inj 4 Mg/2 Ml Vial IV PUSH Q6H PRN Nausea And Vomiting Simethicone 80 mg 04/21/21 10:34 04/22/21 05:37 Simethicone 80 Mg Tab.Chew PO 80 mg Q2H PRN Administration Gas Labs CBC & Chem 7: 04/22/21 05:29 Labs: Laboratory Results - last 24 hr 04/22/21 05:29 WBC 11.3 H RBC 4.06 L Hgb 8.5 L Hct 28.5 L MCV 70.2 L MCH 20.9 L MCHC 29.8 L RDW 19.9 H Plt Count 434 H MPV 9.6 Immature Gran % (Auto) 0.4 Neut % (Auto) 91.5 H Lymph % (Auto) 7.1 L [place] % (Auto) 1.0 L Eos % (Auto) 0.0 Baso % (Auto) 0.0 L Lymph # (Auto) 0.80 L [place] # (Auto) 0.1 Eos # (Auto) 0.0 Baso # (Auto) 0.0 Abs Immat Gran (auto) 0.05 H Absolute Neuts (auto) 10.4 H Absolute Nucleated RBC 0.0 Nucleated RBC % 0.0
--- NOTE | 2021-04-22 08:50 | PM.DS ---
DS: Admitting Diagnosis Discharge Date 04/22/21 Admitting Diagnosis Menometrorrhagia DS: Discharge Diagnosis Discharge Diagnosis (1) Menometrorrhagia: Code(s): N92.1 - Excessive and frequent menstruation with irregular cycle Status: Acute DS: Summary Hospital Course Hospital Course: Admitted to hospital on the date of scheduled surgery. Had facial swelling thought to be related to [place] dose, responded well to Benadryl and steroid dose. Subsequently did well and was able to go home. DS: Data Data Completed and Pending Pending studies at discharge: Pending at discharge 04/21/21 08:21 Surgical [PTH] Routine Labs on day of discharge: Labs from last 24 hours 04/22/21 05:29 WBC 11.3 H RBC 4.06 L Hgb 8.5 L Hct 28.5 L MCV 70.2 L MCH 20.9 L MCHC 29.8 L RDW 19.9 H Plt Count 434 H MPV 9.6 Immature Gran % (Auto) 0.4 Neut % (Auto) 91.5 H Lymph % (Auto) 7.1 L [place] % (Auto) 1.0 L Eos % (Auto) 0.0 Baso % (Auto) 0.0 L Lymph # (Auto) 0.80 L [place] # (Auto) 0.1 Eos # (Auto) 0.0 Baso # (Auto) 0.0 Abs Immat Gran (auto) 0.05 H Absolute Neuts (auto) 10.4 H Absolute Nucleated RBC 0.0 Nucleated RBC % 0.0 Discharge Plan Discharge Patient Disposition: Home, Self-Care Discharge Instructions: Pelvic rest for six weeks. Call or return if temperature above 100.4? F, increased abdominal pain, increased vaginal bleeding or any new problems. Stand Alone Forms: General Discharge Instructions Follow-up/Referrals: Amarjit Shi MD [Physician] - Discharge Medications: New tramadol 50 mg tablet 50 - 100 mg PO Q6H PRN (Reason: pain) Qty: 30 RF: 0 ibuprofen 600 mg tablet 600 mg PO Q6H PRN (Reason: cramps) Qty: 30 RF: 0 Continued ferrous sulfate [FeroSul] 325 mg (65 mg iron) tablet 325 mg PO DAILY RF: 0
--- NOTE | 2021-04-22 08:53 | P.PNAN_ITS ---
Anes - Prog Note Post-Op Date/Time: 04/22/21 08:53 Cardiovascular status: normal Respiratory status: normal Airway patency: baseline Mental status: baseline Post-Op hydration status: normal Vital Signs: Last Vital Signs Temp 98.0 F 04/22/21 05:30 Pulse 63 04/22/21 05:30 Resp 16 04/22/21 05:30 BP 95/59 L 04/22/21 05:30 Pulse Ox 100 04/21/21 19:13 Pain Score (VAS): 3 I/O: Intake & Output 04/21/21 04/22/21 04/22/21 23:59 07:59 15:59 Intake Total 1600 Output Total 700 Balance 900 Laboratory Tests 04/22/21 05:29 04/22/21 05:29 WBC 11.3 H RBC 4.06 L Hgb 8.5 L Hct 28.5 L MCV 70.2 L MCH 20.9 L MCHC 29.8 L RDW 19.9 H Plt Count 434 H MPV 9.6 Immature Gran % (Auto) 0.4 Neut % (Auto) 91.5 H Lymph % (Auto) 7.1 L [place] % (Auto) 1.0 L Eos % (Auto) 0.0 Baso % (Auto) 0.0 L Lymph # (Auto) 0.80 L [place] # (Auto) 0.1 Eos # (Auto) 0.0 Baso # (Auto) 0.0 Abs Immat Gran (auto) 0.05 H Absolute Neuts (auto) 10.4 H Absolute Nucleated RBC 0.0 Nucleated RBC % 0.0 Post-procedural complaints: none Patient Feedback: Patient satisfied with anesthetic care.
[2021-04-22] MEDS: DOCUSATE SODIUM 100 MG CAPSULE PO (09:45)
[2021-04-22] MEDS: traMADol HCL (*CRX) 50 MG TABLET PO (09:48)
[2021-04-22 11:30] VITALS: BP 126/65; PULSE 63; PULSE 86; RESP 16; RESP 18; TEMP 36.7; O2SAT 100
[2021-04-22] MEDS: ENOXAPARIN 40 MG/0.4 ML SYRINGE SUB-Q (11:30)
== END 2021-04-22 12:10 | disposition home or self-care (01) ==
LOC: ANHSURGERY 07:07 → ANHOB2 09:58
PROVIDERS: Visit Provider Obstetrics & Gynecology
PROC: (CPT 58552; principal; 2021-04-21 07:30)
DX: N92.1 Excessive and frequent menstruation with irregular cycle (principal); N73.6 Female pelvic peritoneal adhesions (postinfective); R10.2 Pelvic and perineal pain; D64.9 Anemia, unspecified; Z87.891 Personal history of nicotine dependence
CPT/HCPCS: 58552; S2900; 36415; 85025; 86850; 86900; 86901; 88307; 99199; A9270; J0690; J1100; J1200; J1650; J1885; J2250; J2405; J2704; J2710; J3010; J7030; J7120; J7121; J7512

== ENCOUNTER 2021-12-25 22:22 | Emergency (ER) | payer MEDICAID, SELFPAY ==
--- NOTE | ~2021-12-25 | XR_ITS ---
EXAM: XR ankle RT min 3V, XR foot RT min 3V DATE: 12/25/2021 22:51 (accession [id number]), 12/25/2021 22:50 (accession [id number]) HISTORY: injury with edema and pain . COMPARISON: None available. FINDINGS: Normal mineralization. No fracture or dislocation. No lytic or blastic lesion. Mild degene rative change in the first MTP, tibiotalar joint, and the midfoot. Mild plantar enthesopathy. Mild nolasco llux valgus. No erosion or periosteal change. Soft tissues within normal limits. IMPRESSION: No acute osseous finding in the right foot or ankle. Reviewed, dictated and finalized at location K. IMPRESSION: No acute osseous finding in the right foot or ankle.
[2021-12-25 22:24] VITALS: BP 118/77; PULSE 81; RESP 16; TEMP 36.9; O2SAT 100
[2021-12-26] MEDS: ACETAMINOPHEN 500 MG TABLET 1000 MG PO (00:59)
--- NOTE | 2021-12-26 01:04 | ED.GENADULT ---
HPI - General Adult General Chief complaint: Extremity Injury, Lower Stated complaint: Right ankle injury Time Seen by Provider: 12/26/21 00:52 History of Present Illness HPI narrative: This is a 36-year-old female presenting ED with right ankle pain. Patient stepped off of a step and rolled her ankle. She then came to emergency department for further evaluation. She has had pain with weight-bearing. She has not taken anything for pain control. There is some mild swelling but no erythema. Related Data Home Medications Medication Instructions Recorded Confirmed ferrous sulfate 325 mg (65 mg 325 mg PO DAILY 10/27/20 04/21/21 iron) tablet (FeroSul) Allergies Allergy/AdvReac Type Severity Reaction Status Date / Time hydrocodone Allergy Difficulty Verified 12/25/21 23:49 Breathing Review of Systems Review of Systems: CONSTITUTIONAL: Denies night sweats. EYES: No eye pain ENT: Denies rhinorrhea CARDIOVASCULAR: Denies palpitations RESPIRATORY: Denies hemoptysis GASTROINTESTINAL: Denies hematemesis GENITOURINARY: Denies hematuria. SKIN: Denies rash MUSCULOSKELETAL: Denies myalgia. NEUROLOGIC: Denies weakness. PSYCHIATRIC: Denies delusions PMFSH Past Medical History Medical History Anemia Anxiety Depression History of gestational diabetes hemorrhage Surgical History Surgical History delivery delivered Family History Family History Other No pertinent family history Social History Social History Smoking packs per day: 0.5 Smoking cigarettes per day: 10.0 Years smoked: 10 Smoking pack-years: 5.00 Smoking status: Former smoker Tobacco type: cigarettes Smoking end date: 04/15/17 Alcohol intake: never Substance use: never Substance use type: does not use Gender identity (if verbalized by the patient): Female Spiritual care concerns: No Exam Narrative: APPEARANCE: No apparent distress. Head atraumatic. EYES: PERRLA/EOMI, NOSE: Normal no drainage NECK: Supple, Trachea midline RESPIRATORY: CTAB, No increased work of breathing. CARDIOVASCULAR: S1S2 appreciated ABDOMINAL: Soft, nontender, nondistended, MUSCULOSKELETAl: Focal exam of the right lower extremity revealed no skin changes. There is mild swelling over the ankle joint on the lateral aspect. There is no ecchymosis. There is no tenderness to palpation over the posterior aspect of the medial or lateral malleolus or over the base of the 5th metatarsal. Cap refill is less than 2 seconds. Pulses are intact. NEURO: Alert. Moving 4/4 extremities SKIN:: Warm, dry. Normal color PSYCHIATRIC: Normal affect Course Vital Signs Vital signs: Vital Signs Temperature 98.5 F 12/25/21 22:24 Pulse Rate 81 12/25/21 22:24 Respiratory Rate 16 12/25/21 22:24 Blood Pressure 118/77 12/25/21 22:24 Pulse Oximetry 100 12/25/21 22:24 Oxygen Delivery Room Air 12/25/21 22:24 Temperature 98.5 F 12/25/21 22:24 Pulse Rate 81 12/25/21 22:24 Respiratory Rate 16 12/25/21 22:24 Blood Pressure 118/77 12/25/21 22:24 Pulse Oximetry 100 12/25/21 22:24 Oxygen Delivery Room Air 12/25/21 22:24 Medical Decision Making [facility] Narrative Medical decision making narrative: This is a 36-year-old female presenting with ankle pain. X-rays were negative for acute fracture. The patient will be treated with Motrin and Tylenol. She has been instructed to rest the joint, use ice for pain control and [place] bandage wrap for compression and elevate the ankle when possible. She can follow up with primary care physician in 1 week for further management. Vital Signs Vital Signs: Vital Signs Temperature 98.5 F 12/25/21 22:24 Pulse Rate 81 12/25/21 22:24 Respirato
[2021-12-26 01:17] VITALS: BP 120/74; RESP 16; O2SAT 100
== END 2021-12-26 01:19 | disposition home or self-care (01) ==
PROVIDERS: Emergency Provider Emergency Medicine
DX: S93.401A Sprain of unspecified ligament of right ankle, initial encounter (principal); Z87.891 Personal history of nicotine dependence; D64.9 Anemia, unspecified; F41.9 Anxiety disorder, unspecified; F32.9 Major depressive disorder, single episode, unspecified; X50.0XXA Overexertion from strenuous movement or load, initial encounter
CPT/HCPCS: 73610; 73630; 99283; A9270

== ENCOUNTER 2022-02-15 15:46 | Emergency (ER) | payer MEDICAID, SELFPAY ==
[2022-02-15] VITALS (21 sets, daily range): BP systolic 109–128; BP diastolic 62–77; PULSE 65–82; RESP 12–21; TEMP 36.1; O2SAT 98–100
--- NOTE | ~2022-02-15 | XR_ITS ---
XR chest 1V portable DATE: 02/15/2022 17:10 INDICATION: Shortness of breath. Dizziness. TECHNIQUE: Portable upright AP chest on 03/04/2022 at 1706 hours COMPARISON: None FINDINGS: Heart size is within normal range. No hilar or mediastinal enlargement. No pulmonary infilt rate or consolidation, pleural effusion or pulmonary vascular congestion or pneumothorax. IMPRESSION: No active cardiopulmonary disease Reviewed, dictated and finalized at location A.
--- NOTE | 2022-02-15 15:58 | ECG_ITS ---
Measurements Intervals [place] Rate: 60 P: 49 IA: 170 QRS: 27 QRSD: 94 T: 26 QT: 426 QTc: 427 Interpretive Statements SINUS RHYTHM NORMAL ECG NO PREVIOUS ECG AVAILABLE FOR COMPARISON Electronically Signed On 02-15-2022 19:05:44 CDT by Gus Porter D.O.
--- NOTE | 2022-02-15 16:49 | ED.SYNCOPE ---
HPI - Syncope General Chief Complaint: Syncope Stated Complaint: dizzy, tingling in extremities Time Seen by Provider: 02/15/22 16:04 History of Present Illness HPI narrative: Patient is a 36-year-old female presenting with lightheadedness. Patient states that she has been feeling lightheaded for the last several of days. States that earlier this week she had multiple episodes of vomiting and diarrhea. She was seen at urgent care and discharged with antibiotics as well as some eyedrops for pinkeye. States that her nausea and diarrhea has improved but she continues to feel lightheaded especially when she stands up and walks. States that her heart feels like it races when this happens. States she has been told that she has a low red blood cells in the past. She denies chest pain, shortness of breath, fevers, headache, abdominal pain, dysuria, vaginal bleeding, leg swelling. Related Data Home Medications Medication Instructions Recorded Confirmed ferrous sulfate 325 mg (65 mg 325 mg PO DAILY 10/27/20 04/21/21 iron) tablet (FeroSul) Allergies Allergy/AdvReac Type Severity Reaction Status Date / Time hydrocodone Allergy Difficulty Verified 02/15/22 16:09 Breathing Review of Systems Review of Systems: All systems reviewed & are unremarkable except as noted in HPI and below PMFSH Past Medical History Medical History Anemia Anxiety Depression History of gestational diabetes hemorrhage Surgical History Surgical History delivery delivered Family History Family History Other No pertinent family history Social History Social History Smoking packs per day: 0.5 Smoking cigarettes per day: 10.0 Years smoked: 10 Smoking pack-years: 5.00 Smoking status: Former smoker Tobacco type: cigarettes Smoking end date: 04/15/17 Alcohol intake: never Substance use: never Substance use type: does not use Gender identity (if verbalized by the patient): Female Spiritual care concerns: No Exam Narrative: GENERAL: Well-appearing, well-nourished, and in no acute distress. HEAD: Normocephalic, atraumatic. EYES: PERRLA and EOMI. ENT: Nares clear, no rhinorrhea or epistaxis. Mucous membranes moist. NECK: Supple. CHEST: Clear to auscultation. No respiratory distress. HEART: Regular rate and rhythm. No murmur heard. Normal peripheral pulses. ABDOMEN: Soft, nontender, nondistended, normal active bowel sounds. EXTREMITIES: Normal range of motion. No edema. SKIN: Warm, dry, no rash. NEURO: No focal deficits. Alert and oriented x3. PSYCH: Normal mood and affect. Course Vital Signs Vital signs: Vital Signs Temperature 97.0 F L 02/15/22 15:49 Pulse Rate 69 02/15/22 15:49 Respiratory Rate 20 02/15/22 15:49 Blood Pressure 109/64 02/15/22 15:49 Pulse Oximetry 100 02/15/22 15:49 Oxygen Delivery Room Air 02/15/22 15:49 Temperature 97.0 F L 02/15/22 15:49 Pulse Rate 71 02/15/22 21:45 Respiratory Rate 16 02/15/22 21:45 Blood Pressure 110/74 02/15/22 21:45 Pulse Oximetry 100 02/15/22 21:45 Oxygen Delivery Room Air 02/15/22 16:06 MDM - Syncope MDM Narrative Medical decision making narrative: Patient is a 36-year-old female presenting with lightheadedness. Vitals are within normal limits. Patient is nontoxic and in no acute distress. EKG per my interpretation shows normal sinus rhythm, normal axis and intervals, no ST elevations or depressions. Blood work is unremarkable. Hemoglobin of 12.2. Chest x-ray shows no abnormalities. Orthostatic vitals are normal. Patient reports improvement in her symptoms following fluids. Advise she follow-up closely with primary care. Strict return precautions given. Patien
[2022-02-15 17:12] LABS: Alanine Aminotransferase 16 U/L (6-35); Albumin Level 4.4 g/dL (3.5-5.1); Alkaline Phosphatase 54 U/L (38-126); Anion Gap 15 mmol/L (8-16); Aspartate Amino Transferase 26 U/L (14-36); Bilirubin,Total 0.3 mg/dL (0.2-1.3); Blood Urea Nitrogen 16 mg/dL (7-17); Calcium 9.1 mg/dL (8.4-10.2); Carbon Dioxide 27 mmol/L (22-30); Chloride 98 mmol/L (98-107); Estimated CRCL calculation 124 ml/min; Estimated Glomerular Filt Rate > 60; Glucose 98 mg/dL (65-110); Potassium 3.6 mmol/L (3.4-5.0); Sodium 140 mmol/L (137-145)
[2022-02-15 17:13] LABS: Hemoglobin 12.2 g/dL (12.0-15.0); Mean Corpuscular HGB Conc 32.1 g/dl (32-36); Mean Corpuscular Hemoglobin 26.4 pg (26-34); Mean Corpuscular Volume 82.3 fl (80-100); Mean Platelet Volume 10.2 fl (7.4-10.4); Platelet Count Result 352 k/mm3 (150-375); Red Blood Count 4.62 M/mm3 (4.2-5.4); Red Cell Distribution Width 17.7 % (11.5-14.5); White Blood Count 5.8 K/mm3 (4.5-10.0)
[2022-02-15 17:20] LABS: Band Neutrophils Percent 6 % (0-6); Eosinophils Absolute Manual 0.05 K/mm3 (0.02-0.5); Eosinophils Percent Manual 1 % (0-4); Lymphocytes Absolute Manual 2.14 K/mm3 (1.1-4.5); Monocytes Absolute Manual 0.52 K/mm3 (0.1-0.90); Monocytes Percent Manual 9 % (3-9); Neutrophils Absolute Manual 3.07 K/mm3 (1.7-7.2); Neutrophils Percent Manual 47 % (46-73); Platelet Estimate Adequate (Adequate); Total Cells Counted 100
[2022-02-15 17:21] LABS: Anisocytosis 2+ (NORMAL)
[2022-02-15 17:29] LABS: Appearance Urine Clear (Clear); Bilirubin Urine 1+ (Negative); Blood Urine Negative (Negative); Color Urine Yellow (Yellow); Glucose Urine UA Negative (Negative); Ketones Urine 1+ mg/dL (Negative); Leukocyte Esterase Ur Negative LEU/UL (Negative); Nitrate Urine Negative (Negative); Protein Urine Negative (Negative); Specific Grav Ur 1.015 (1.001-1.035)
[2022-02-15 17:33] LABS: Schistocytes None Seen (NORMAL)
[2022-02-15 17:36] LABS: Mucus Urine Rare /lpf; RBC Urine 0-2 /hpf (0-2); Squamous Epithelial Cell Urine Rare /hpf (Few); WBC Urine 0-3 /hpf
[2022-02-15 17:38] LABS: Add Urine Microscopic? YES
[2022-02-15] MEDS: SODIUM CHLORIDE 0.9% IV 1,000 ML 999 ML IV CONT ×2 (19:06→20:06)
[2022-02-15 20:25] LABS: Magnesium 2.1 mg/dL (1.6-2.3)
== END 2022-02-15 21:46 | disposition home or self-care (01) ==
PROVIDERS: Emergency Medicine; Emergency Provider Emergency Medicine
DX: R55 Syncope and collapse (principal); R20.2 Paresthesia of skin; Z87.891 Personal history of nicotine dependence
CPT/HCPCS: 36415; 71045; 80053; 81001; 81025; 83735; 84443; 85025; 87804; 93005; 96360; 96361; 99284; J7030

== ENCOUNTER 2022-05-18 09:59 | Emergency (ER) | payer OTHER, SELFPAY ==
--- NOTE | ~2022-05-18 | XR_ITS ---
EXAMINATION: XR hand LT min 3V INDICATION: Left hand pain TECHNIQUE: Three views of the left hand are obtained. COMPARISON: 06/01/2010 FINDINGS: Bone alignment is normal. There is no fracture. The joint spaces are normal. There is a sub tle 2 mm radiopaque foreign body projecting in the palmar soft tissues adjacent to the first metacarp al. IMPRESSION: 1. Subtle radiopaque foreign body projecting in the palmar soft tissues adjacent to the first metacar pal. Reviewed, dictated and finalized at location B. [employer] IMPRESSION: 1. Subtle radiopaque foreign body projecting in the palmar soft tissues adjacen t to the first metacarpal.
--- NOTE | ~2022-05-18 | XR_ITS ---
Left Hand Technique: PA, oblique, and lateral views were obtained. Clinical History: Foreign body COMPARISON: 05/18/2022 at 11:25 AM Findings: No acute fracture or dislocation is seen. Osseous alignment is anatomic. Joint spaces are p reserved. There is a laceration at the region of the first metacarpophalangeal joint, with possible s mall foreign body at this location. Impression: Soft tissue laceration at the first metacarpophalangeal joint region with possible small radiopaque f oreign body at this location. No fracture or dislocation. Reviewed, dictated and finalized at location M. OND SORTER Impression: Soft tissue laceration at the first metacarpophalangeal joint region with possi ble small radiopaque foreign body at this location. No fracture or dislocation.
[2022-05-18 10:11] VITALS: BP 112/71; PULSE 83; RESP 14; TEMP 36.1; O2SAT 99
[2022-05-18] MEDS: LIDO 2%/EPINEPHRINE 1:100,000 50 ML VIAL INFILTRATE (12:48)
[2022-05-18] MEDS: SILVER NITRATE (*SP) STICK 2 EACH (13:14)
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
[2022-05-18] MEDS: TETANUS,DIPHTHERIA,AC PERTUSSIS ADULT (0.5 ML) BOOSTRIX IM (14:04)
== END 2022-05-18 14:25 | disposition home or self-care (01) ==
PROVIDERS: Emergency Provider Emergency Medicine
DX: S61.422A Laceration with foreign body of left hand, initial encounter (principal); Z23 Encounter for immunization; D64.9 Anemia, unspecified; Z87.891 Personal history of nicotine dependence; W25.XXXA Contact with sharp glass, initial encounter; W45.8XXA Other foreign body or object entering through skin, initial encounter
CPT/HCPCS: 12032; 73130; 90471; 90715; 99283

== ENCOUNTER 2022-05-22 22:35 | Emergency (ER) | payer OTHER, SELFPAY ==
[2022-05-22 22:50] VITALS: BP 127/78; PULSE 76; RESP 20; TEMP 36.8; O2SAT 100
--- NOTE | 2022-05-23 01:24 | ED.GENADULT ---
HPI - General Adult General Chief complaint: Wound/Laceration Stated complaint: wound recheck Time Seen by Provider: 05/23/22 01:05 History of Present Illness HPI narrative: this is a 37-year-old female presenting to ED for a wound check. Patient was seen here several days ago for a laceration repair to her hand. That time a multilayer laceration repair was performed. The patient is concerned because there has been some drainage. She is not in significant pain. She does not have any systemic signs of illness such as fevers chills nausea vomiting or diarrhea. Related Data Home Medications Medication Instructions Recorded Confirmed ferrous sulfate 325 mg (65 mg 325 mg PO DAILY 10/27/20 04/21/21 iron) tablet (FeroSul) Allergies Allergy/AdvReac Type Severity Reaction Status Date / Time hydrocodone Allergy Difficulty Verified 05/23/22 00:48 Breathing PMFSH Past Medical History Medical History Anemia Anxiety Depression History of gestational diabetes hemorrhage Surgical History Surgical History delivery delivered Family History Family History Other No pertinent family history Social History Social History Smoking packs per day: 0.5 Smoking cigarettes per day: 10.0 Years smoked: 10 Smoking pack-years: 5.00 Smoking status: Former smoker Tobacco type: cigarettes Smoking end date: 04/15/17 Alcohol intake: never Substance use: never Substance use type: does not use Living arrangements: with family Gender identity (if verbalized by the patient): Female Spiritual care concerns: No Exam Narrative: APPEARANCE: No apparent distress. Head: atraumatic. EYES: EOMI, NOSE: Atraumatic NECK: Trachea midline RESPIRATORY: No increased rate of breathing CARDIOVASCULAR: RRR, ABDOMINAL: Non-distended MUSCULOSKELETAl: No obvious deformities NEURO: Alert. Moving 4/4 extremities SKIN:: Patient has a J-shaped laceration over the base of her thumb that has been repaired with sutures. there is some granulation tissue at the suture line. I am unable to express any pus. There is some serosanguineous drainage. Patient is able to range the thumb in all directions with minimal pain. sensation is intact. PSYCHIATRIC: Normal affect Course Vital Signs Vital signs: Vital Signs Temperature 98.2 F 05/22/22 22:50 Pulse Rate 76 05/22/22 22:50 Respiratory Rate 20 05/22/22 22:50 Blood Pressure 127/78 05/22/22 22:50 Pulse Oximetry 100 05/22/22 22:50 Oxygen Delivery Room Air 05/22/22 22:50 Temperature 98.2 F 05/22/22 22:50 Pulse Rate 76 05/22/22 22:50 Respiratory Rate 20 05/22/22 22:50 Blood Pressure 127/78 05/22/22 22:50 Pulse Oximetry 100 05/22/22 22:50 Oxygen Delivery Room Air 05/22/22 22:50 Medical Decision Making MDM Narrative Medical decision making narrative: -Presentation: 37-year-old female presenting For a wound check. -DDX includes but is not limited to: infection, granulation tissue, normal healing -Co-morbidities complicating care: none -Social determinants of health: noncontributory -External Chart Review: review of previous ER records -Hx from independent Sources: none -Discussion of Management/Consultants: none -Independent interpretation of studies: none Dx tests considered but not ordered: none -Procedures: none -Interventions: none -Shared decision making / Disposition: On evaluation the wound does not appear infected. There is some granulation tissue at the suture line. The patient would feel more comfortable if she was given some antibiotics. These will be provided. The patient has been instructed to follow closely with her primary care physician gallo
[2022-05-23 01:26] VITALS: BP 120/80; PULSE 64; RESP 14; O2SAT 99
[2022-05-23] MEDS: CEPHALEXIN 500 MG CAPSULE PO (01:54)
[2022-05-23 02:00] VITALS: BP 120/74; PULSE 78; RESP 16; O2SAT 98
== END 2022-05-23 02:00 | disposition home or self-care (01) ==
PROVIDERS: Emergency Provider Emergency Medicine
DX: S61.412D Laceration without foreign body of left hand, subsequent encounter (principal); D64.9 Anemia, unspecified; F41.9 Anxiety disorder, unspecified; F32.A Depression, unspecified; Z87.891 Personal history of nicotine dependence; X58.XXXD Exposure to other specified factors, subsequent encounter
CPT/HCPCS: 99283; A9270

== ENCOUNTER 2022-06-17 11:43 | Emergency (ER) | payer OTHER, SELFPAY ==
--- NOTE | 2022-06-17 12:06 | ED.URI ---
HPI - URI/Sore Throat General Stated Complaint: wants strep test Time Seen by Provider: 06/17/22 12:30 Source: patient and RN notes reviewed Mode of arrival: ambulatory Limitations: no limitations History of Present Illness HPI Narrative: 37-year-old female presents with concern for sore throat. Reports sore throat started this morning, it is more scratchy than sore. Reports 3 of her children have similar symptoms, her daughters both have swollen tonsils. She has concern for strep throat. She denies fever, aches, chills sweats, cough, stuffy nose or runny nose MD elicited complaint: sore throat Related Data Home Medications Medication Instructions Recorded Confirmed No Home Medications 06/17/22 06/17/22 Allergies Allergy/AdvReac Type Severity Reaction Status Date / Time hydrocodone Allergy Difficulty Verified 06/17/22 12:43 Breathing Review of Systems Review of Systems: CONSTITUTIONAL: Denies malaise, chills, sweats, or fever. EYES: Denies visual changes, redness, or discharge. ENT: Denies rhinorrhea, congestion, sinus pain, otalgia. Reports scratchy sore throat. CARDIOVASCULAR: Denies chest pain, palpitations, or edema. RESPIRATORY: Denies cough. Denies dyspnea. GASTROINTESTINAL: Denies abdominal pain, nausea, vomiting, diarrhea SKIN: Denies rash or itching. MUSCULOSKELETAL: Denies myalgia. NEUROLOGIC: Denies headache. All systems reviewed & are unremarkable except as noted in HPI and below PMFSH Past Medical History Medical History Anemia Anxiety Depression History of gestational diabetes hemorrhage Surgical History Surgical History delivery delivered Family History Family History Other No pertinent family history Social History Social History Smoking packs per day: 0.5 Smoking cigarettes per day: 10.0 Years smoked: 10 Smoking pack-years: 5.00 Smoking status: Former smoker Tobacco type: cigarettes Smoking end date: 04/15/17 Alcohol intake: never Substance use: never Substance use type: does not use Living arrangements: with family Gender identity (if verbalized by the patient): Female Spiritual care concerns: No Comments At time of signature, agree with nursing past medical, surgical, social and family history. There is no relevant family history pertinent to the presenting complaint Exam Narrative: GENERAL: Well-appearing, well-nourished, and in no acute distress. HEAD: Normocephalic EYES: PERRLA, conjunctivae clear ENT: Nares clear, no discharge. Mucous membranes moist. TM pearly connelly with sharp light reflex bilaterally; no tragal tenderness. Oropharynx not erythematous without lesions. Tonsils not enlarged and without exudate, no drooling, no hoarseness, no trismus, uvula midline. NECK: Supple. No lymphadenopathy CHEST: Clear to auscultation, breath sounds equal. No wheezing, rhonchi, rales, or stridor. No respiratory distress, speaks in full sentences. HEART: Regular rate and rhythm. No murmur heard. SKIN: Warm, dry, no rash. NEURO: Alert and oriented x3. PSYCH: Normal mood and affect Course Course Emergency Course: Patient is aware of diagnosis, understands and agrees to treatment plan. Anticipatory guidance given. Patient agrees to follow-up as directed and is aware of reasons to seek care at the emergency department. Portions of this record may have been created with voice recognition software Level of Care: Express Care Visit Vital Signs Vital signs: Reviewed. MDM - URI/Sore Throat MDM Narrative Medical decision making narrative: Differential diagnosis considered: Rose virus, strep pharyngitis, allergic rhinitis, upper respiratory tract infection, sinusitis, rhinosinusitis, nasopharyngitis. viral phary
[2022-06-17 12:29] VITALS: BP 107/61; PULSE 70; RESP 16; TEMP 36.4; O2SAT 99
== END 2022-06-17 13:10 | disposition home or self-care (01) ==
PROVIDERS: Emergency Provider Nurse Practitioner
DX: J02.9 Acute pharyngitis, unspecified (principal); Z87.891 Personal history of nicotine dependence
CPT/HCPCS: 87081; 87880; 99213; G0463

== ENCOUNTER 2022-10-22 20:28 | Emergency (ER) | payer OTHER, SELFPAY ==
--- NOTE | ~2022-10-22 | XR_ITS ---
EXAMINATION: XR knee LT min 4V DATE: 10/22/2022 21:41 INDICATION: Left knee injury and pain. TECHNIQUE: 5 views of left knee were obtained. COMPARISON: None. FINDINGS: Bone alignment is normal. No fracture. There is mild osteoarthritis of medial and patellofe moral compartments characterized by tiny marginal osteophytes. No joint space narrowing. No knee join t effusion. IMPRESSION: 1. Mild left knee osteoarthritis. Reviewed, dictated and finalized at location E.
[2022-10-22 20:33] VITALS: BP 130/72; PULSE 79; RESP 16; TEMP 36.4; O2SAT 98
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
[2022-10-22 22:30] VITALS: BP 109/55; PULSE 72; RESP 13; O2SAT 100
== END 2022-10-22 22:37 | disposition home or self-care (01) ==
PROVIDERS: Emergency Provider Physician Assistant
DX: M23.92 Unspecified internal derangement of left knee (principal); Z87.891 Personal history of nicotine dependence; X50.0XXA Overexertion from strenuous movement or load, initial encounter; Y92.830 Public park as the place of occurrence of the external cause
CPT/HCPCS: 73564; 99283

== ENCOUNTER 2023-01-09 10:49 | Emergency (ER) | payer OTHER, SELFPAY ==
[2023-01-09 11:33] VITALS: BP 113/72; PULSE 87; RESP 16; TEMP 36.8; O2SAT 98
--- NOTE | 2023-01-09 13:29 | ED.URI ---
HPI - URI/Sore Throat General Chief Complaint: Upper Respiratory Infection Stated Complaint: COUGH/SOB Time Seen by Provider: 01/09/23 13:22 Source: patient and RN notes reviewed Mode of arrival: ambulatory Limitations: no limitations History of Present Illness HPI Narrative: Patient presents today with a 2 day history of productive cough congestion, rhinorrhea. Denies fever. She has been taking Mucinex with some relief. Denies history of asthma or COPD. Related Data Home Medications Medication Instructions Recorded Confirmed dextroamphetamine-amphetamine ER 20 mg PO DAILY 01/09/23 01/09/23 20 mg 24hr capsule,extend release hydroxyzine pamoate 50 mg capsule 50 mg PO TID 01/09/23 01/09/23 venlafaxine 75 mg capsule,extended 75 mg PO DAILY 01/09/23 01/09/23 release 24 hr zolpidem 5 mg tablet 5 mg PO HS 01/09/23 01/09/23 Allergies Allergy/AdvReac Type Severity Reaction Status Date / Time hydrocodone Allergy Difficulty Verified 01/09/23 11:25 Breathing Review of Systems Review of Systems: CONSTITUTIONAL: Denies body aches, fever, chills, or sweats. EYES: Denies visual changes, redness, or discharge. ENT: Denies sore throat, or otalgia.+ congestion, rhinorrhea CARDIOVASCULAR: Denies chest pain, palpitations, or edema. RESPIRATORY: Denies dyspnea.+ cough GASTROINTESTINAL: Denies abdominal pain, nausea, vomiting, or diarrhea. GENITOURINARY: Denies dysuria or hematuria. SKIN: Denies rash, itching, or wounds. MUSCULOSKELETAL: Denies back pain, joint pain, or myalgia. NEUROLOGIC: Denies headache, numbness, tingling, or weakness. PSYCH: Denies depression or anxiety. [facility] Past Medical History Medical History Anemia Anxiety Depression History of gestational diabetes hemorrhage Surgical History Surgical History delivery delivered Family History Family History Other No pertinent family history Social History Social History Smoking packs per day: 0.5 Smoking cigarettes per day: 10.0 Years smoked: 10 Smoking pack-years: 5.00 Smoking status: Former smoker Tobacco type: cigarettes Smoking end date: 04/15/17 Alcohol intake: never Substance use: never Substance use type: does not use Living arrangements: with family Gender identity (if verbalized by the patient): Female Spiritual care concerns: No Comments At time of signature, I have reviewed and agree with nursing past medical, surgical, social and family history unless otherwise noted. Please see nursing chart for further information. There is no relevant family history pertinent to the presenting complaint Exam Narrative: GENERAL: Mildly ill-appearing, well-nourished, and in no acute distress. HEAD: Normocephalic, atraumatic. EYES: EOMI. No redness or drainage. Conjunctivae normal. ENT: Mucous membranes pink and moist. Nares congested with rhinorrhea. TMs normal bilaterally. Throat normal. Uvula midline. NECK: Normal AROM. Supple. No lymphadenopathy. CHEST: No respiratory distress. Slight expiratory wheeze in the left lower lobe, otherwise clear HEART: Regular rate and rhythm. No murmur appreciated. Normal peripheral pulses. EXTREMITIES: Normal range of motion. No edema. SKIN: Warm, dry, no rash. Capillary refill normal. Normal skin turgor. NEURO: No focal deficits. Alert and oriented x3. Gait steady. PSYCH: Normal affect. No signs of depression or anxiety. Course Course Level of Care: Express Care Visit Vital Signs Vital signs: Vital Signs Temperature 98.3 F 01/09/23 11:33 Pulse Rate 87 01/09/23 11:33 Respiratory Rate 16 01/09/23 11:33 Blood Pressure 113/72 01/09/23 11:33 Pulse Oximetry 98 01/09/23 11:33
--- NOTE | 2023-01-09 13:40 | PC.NURSE ---
1250- pt remains stable at present, no new c/o at present, she is entertaining her young child in room, popsicle given to child.
== END 2023-01-09 13:35 | disposition home or self-care (01) ==
PROVIDERS: Emergency Provider Nurse Practitioner; PCP Hospitalist
DX: J06.9 Acute upper respiratory infection, unspecified (principal); F41.9 Anxiety disorder, unspecified; F32.A Depression, unspecified; Z87.891 Personal history of nicotine dependence
CPT/HCPCS: 99213; G0463

== ENCOUNTER 2023-06-23 18:55 | Emergency (ER) | payer OTHER, SELFPAY ==
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
[2023-06-23 19:02] VITALS: BP 114/82; PULSE 85; RESP 18; TEMP 36.8; O2SAT 99
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
[2023-06-23 21:51] LABS: Basophils Percent Auto 0.2 % (0.2-1.2); Hematocrit 41.7 % (37.0-47.0); Hemoglobin 13.5 g/dL (12.0-15.0); Immature Granulocyte Absolute 0.03 K/mm3 (0.00-0.031); Immature Granulocyte Percent A 0.3 % (0-0.5); Lymphocytes Absolute Auto 0.94 K/mm3 (0.9-3.2); Lymphocytes Percent Auto 8.9 % (18.3-44.2); Mean Corpuscular HGB Conc 32.4 g/dl (32-36); Mean Corpuscular Hemoglobin 28.6 pg (26-34); Mean Corpuscular Volume 88.3 fl (80-100); Mean Platelet Volume 9.3 fl (7.4-10.4); Monocytes Absolute Auto 0.5 K/mm3 (0.1-0.6); Monocytes Percent Auto 5.1 % (2.6-8.5); Neutrophils Percent Auto 85.5 % (45.5-73.1); Platelet Count Result 293 k/mm3 (150-375); Red Blood Count 4.72 M/mm3 (4.2-5.4); Red Cell Distribution Width 13.7 % (11.5-14.5); White Blood Count 10.5 K/mm3 (4.5-10.0)
[2023-06-23 22:03] LABS: Alanine Aminotransferase 17 U/L (6-35); Albumin Level 4.7 g/dL (3.5-5.1); Alkaline Phosphatase 55 U/L (38-126); Anion Gap 8 mmol/L (8-16); Aspartate Amino Transferase 24 U/L (14-36); Bilirubin,Total 0.5 mg/dL (0.2-1.3); Blood Urea Nitrogen 16 mg/dL (7-17); Calcium 9.9 mg/dL (8.4-10.2); Carbon Dioxide 26 mmol/L (22-30); Chloride 100 mmol/L (98-107); Estimated CRCL calculation 125 ml/min; Estimated Glomerular Filt Rate > 60; Glucose 160 mg/dL (65-110); Potassium 3.8 mmol/L (3.4-5.0); Sodium 134 mmol/L (137-145)
[2023-06-23] MEDS: traMADol HCL (*CRX) 50 MG TABLET PO (22:31)
[2023-06-23] MEDS: IBUPROFEN 600 MG TABLET PO (22:31)
[2023-06-23] MEDS: valACYclovir HCL 500 MG TABLET 1000 MG PO (22:41)
[2023-06-23 22:49] LABS: Appearance Urine Cloudy (Clear); Bacteria Urine None Seen /hpf; Bilirubin Urine 1+ (Negative); Blood Urine Negative (Negative); Color Urine Dark Yellow (Yellow); Glucose Urine UA Negative (Negative); Hyaline Casts Urine Present /lpf; Ketones Urine Trace mg/dL (Negative); Leukocyte Esterase Ur 1+ LEU/UL (Negative); Mucus Urine Present /lpf; Need Manual Microscopic Reviewed; Nitrate Urine Negative (Negative); Protein Urine 1+ mg/dL (Negative); Squamous Epithelial Cell Urine Few /hpf (Few); WBC Urine 0-5 /hpf; pH Urine 5.5 (5.0-9.0)
[2023-06-23 22:51] LABS: Add Urine Microscopic? YES; Specific Grav Ur 1.037 (1.001-1.035)
[2023-06-23 23:28] LABS: Trichomonas Vag PCR NOT DETECTED (NOT DETECTE)
[2023-06-23 23:35] LABS: HIV 1/2 Ab P24 Ag Result Negative (Negative)
[2023-06-23 23:53] LABS: Chlamydia trachomatis NOT DETECTED (NOT DETECTE); Neisseria gonorrhoeae PCR NOT DETECTED (NOT DETECTE)
[2023-06-24 15:51] LABS: Rapid Plasma Reagin Non-Reactive (NonReactive)
== END 2023-06-24 00:45 | disposition home or self-care (01) ==
PROVIDERS: Emergency Provider Physician Assistant; PCP Hospitalist
DX: S02.40CA Maxillary fracture, right side, initial encounter for closed fracture (principal); S62.395A Other fracture of fourth metacarpal bone, left hand, initial encounter for closed fracture; S92.335A Nondisplaced fracture of third metatarsal bone, left foot, initial encounter for closed fracture; S92.345A Nondisplaced fracture of fourth metatarsal bone, left foot, initial encounter for closed fracture; Z11.3 Encounter for screening for infections with a predominantly sexual mode of transmission; F41.9 Anxiety disorder, unspecified; F32.A Depression, unspecified; Z86.2 Personal history of diseases of the blood and blood-forming organs and certain disorders involving the immune mechanism; Z87.891 Personal history of nicotine dependence; V47.5XXA Car driver injured in collision with fixed or stationary object in traffic accident, initial encounter
CPT/HCPCS: 29125; 36415; 70450; 70486; 73130; 73630; 80053; 81001; 81025; 85025; 86592; 86703; 87070; 87255; 87491; 87591; 87661; 99284; A9270; G0432

== ENCOUNTER 2023-07-15 09:22 | Outpatient (CLI) | payer OTHER, SELFPAY ==
--- NOTE | ~2023-07-15 | XR_ITS ---
Left Hand Technique: PA, oblique, and lateral views were obtained. Clinical History: Fourth metacarpal fracture COMPARISON: 06/23/2023 Findings: Mild progressive interval healing of fracture of the fourth metacarpal shaft. Osseous align ment is unchanged.. Joint spaces are preserved. Soft tissues are unremarkable. Impression: Mild progressive interval healing of fourth metacarpal fracture. Stable osseous alignment. Reviewed, dictated and finalized at location . Impression: Mild progressive interval healing of fourth metacarpal fracture. Stable osseous alignment.
== END 2023-07-15 09:23 | disposition home or self-care (01) ==
LOC: ANHIMG 09:24
PROVIDERS: PCP Hospitalist; Visit Provider Plastic Surgery
DX: S62.305D Unspecified fracture of fourth metacarpal bone, left hand, subsequent encounter for fracture with routine healing (principal)
CPT/HCPCS: 73130

== ENCOUNTER 2023-08-05 07:53 | Outpatient (CLI) | payer OTHER, SELFPAY ==
--- NOTE | ~2023-08-05 | XR_ITS ---
EXAMINATION: XR foot LT min 3V DATE: 08/05/2023 08:11 INDICATION: Fracture of unspecified metatarsal bone. TECHNIQUE: 4 views of left foot were obtained. COMPARISON: Left foot radiographs 06/23/2023 FINDINGS: There are nondisplaced transverse fractures of the necks of the third and fourth metatarsal s with callus formation. Joint spaces are normal. IMPRESSION: 1. Healing transverse fractures of the necks of the third and fourth metatarsals. Reviewed, dictated and finalized at location E. IMPRESSION: 1. Healing transverse fractures of the necks of the third and fourth metatarsal s.
== END 2023-08-05 07:54 | disposition home or self-care (01) ==
PROVIDERS: PCP Hospitalist; Visit Provider Orthopaedic Surgery
DX: S92.335D Nondisplaced fracture of third metatarsal bone, left foot, subsequent encounter for fracture with routine healing (principal); S92.345D Nondisplaced fracture of fourth metatarsal bone, left foot, subsequent encounter for fracture with routine healing; X58.XXXD Exposure to other specified factors, subsequent encounter
CPT/HCPCS: 73630

== ENCOUNTER 2023-08-13 08:17 | Outpatient (CLI) | payer OTHER, SELFPAY ==
--- NOTE | ~2023-08-13 | XR_ITS ---
XR hand LT min 3V DATE: 08/13/2023 08:31 INDICATION: Fourth metacarpal fracture follow-up TECHNIQUE: 3 views of the left hand COMPARISON: July 15, 2023 FINDINGS: Fracture lines are still evident. There is organized callus formation bridging the fracture of the fourth metacarpal shaft, with no interval change in position or alignment since July 15, 2023 . Benign cyst of lunate bone. IMPRESSION: Healing fourth metacarpal shaft fracture Reviewed, dictated and finalized at location A.
== END 2023-08-13 08:18 | disposition home or self-care (01) ==
PROVIDERS: PCP Hospitalist; Visit Provider Physician Assistant Surgical
DX: S62.325D Displaced fracture of shaft of fourth metacarpal bone, left hand, subsequent encounter for fracture with routine healing (principal)
CPT/HCPCS: 73130

== ENCOUNTER 2024-01-15 11:50 | Emergency (ER) | payer OTHER, SELFPAY ==
--- NOTE | ~2024-01-15 | XR_ITS ---
EXAMINATION: XR chest 2V DATE: 01/15/2024 15:35 INDICATION: Chest pain. TECHNIQUE: Frontal and lateral views of the chest were obtained. COMPARISON: Shortness of breath. FINDINGS: There are airspace opacities in right middle lobe and left upper lobe. No pleural effusion or pneumothorax. The heart size is normal. IMPRESSION: 1. Airspace opacities in right middle lobe and left upper lobe, consistent with pneumonia. Reviewed, dictated and finalized at location A.
[2024-01-15 12:00] VITALS: BP 140/72; PULSE 101; RESP 16; TEMP 36.7; O2SAT 96
--- NOTE | 2024-01-15 12:02 | ECG_ITS ---
Test Date: 2024-01-15 12:07:31 Measurements Intervals [place] Rate: 102 P: 52 ME: 153 QRS: 38 QRSD: 108 T: 30 QT: 324 QTc: 424 Interpretive Statements SINUS TACHYCARDIA WITH OCCASIONAL SUPRAVENTRICULAR PREMATURE COMPLEXES ABNORMAL ECG No previous ECG available for comparison Electronically Signed On 01-15-2024 14:06:52 CDT by Andrew Currie M.D.
--- NOTE | 2024-01-15 15:22 | ED.NAVMDI ---
HPI - Nausea/Vomiting/Diarrhea General Chief complaint: Nausea/Vomiting/Diarrhea <Trixie Arteaga PA-C - Last Filed: 01/20/24 17:15> Stated complaint: vomiting, decreased appetite <Trixie Arteaga PA-C - Last Filed: 01/20/24 17:15> Time Seen by Provider: 01/15/24 15:22 <Trixie Arteaga PA-C - Last Filed: 01/20/24 17:15> Focused HPI: This is a 38 year old female that presents to the ER for decreased PO intake. Reports started with a cough and congestion. Has had fever, nausea, vomiting, and diarrhea. Denies abdominal pain, dysuria or hematuria. Reports she has passed out twice. Does not believe she hit her head. GENERAL: Well-appearing, well-nourished, and in no acute distress. HEAD: Normocephalic, atraumatic. CHEST: Clear to auscultation. ?No respiratory distress. HEART: Regular rate and rhythm.? NEURO: ?Alert and oriented x3. Patient screened in triage and initial orders placed.? ?Additional care and disposition to be based upon?diagnostic testing and treatment. <Trixie Arteaga PA-C - Last Filed: 01/20/24 17:15> History of Present Illness HPI Narrative: Patient is a 38-year-old female presents emergency department with chief complaint of cough congestion nausea vomiting diarrhea. The patient reports that is been ongoing for several days reports she got lightheaded and felt as though she passed out. The patient denies chest pain denies shortness of breath but does report that the cough has been her biggest complaint. <Lucho Morrissey MD - Last Filed: 01/15/24 19:45> Related Data Home medications: Home Medications Medication Instructions Recorded Confirmed dextroamphetamine-amphetamine ER 20 mg PO DAILY 01/09/23 08/05/23 20 mg 24hr capsule,extend release hydroxyzine pamoate 50 mg capsule 50 mg PO TID 01/09/23 08/05/23 venlafaxine 75 mg capsule,extended 75 mg PO DAILY 01/09/23 08/05/23 release 24 hr zolpidem 5 mg tablet 5 mg PO HS 01/09/23 08/05/23 <KEITH Arechiga Last Filed: 01/20/24 17:15> Allergies/Adverse reactions: Allergies Allergy/AdvReac Type Severity Reaction Status Date / Time hydrocodone Allergy Difficulty Verified 01/15/24 11:51 Breathing <Trixie Arteaga PA-C - Last Filed: 01/20/24 17:15> Review of Systems Review of Systems: A 10 system review of systems was completed on the patient and is negative except for what is stated in the HPI. Nursing and ancillary documentation was reviewed. <Lucho Morrissey MD - Last Filed: 01/15/24 19:45> [facility] Past Medical History Medical History: Medical History Anemia Anxiety Depression History of gestational diabetes hemorrhage <Trixie Arteaga PA-C - Last Filed: 01/20/24 17:15> Surgical History Surgical History: Surgical History delivery delivered <Trixie Arteaga PA-C - Last Filed: 01/20/24 17:15> Family History Family History: Family History Other No pertinent family history <Trixie Arteaga PA-C - Last Filed: 01/20/24 17:15> Social History Social History: Social History Smoking packs per day: 0.5 Smoking cigarettes per day: 10.0 Years smoked: 10 Smoking pack-years: 5.00 Smoking status: Former smoker Tobacco type: cigarettes Smoking end date: 04/15/17 Alcohol intake: never Substance use: never Substance use type: does not use Do You Feel Safe in your Home?: Yes Lack of Transportation: No Lack of Food: Never True Current Housing: I Have Housing Concerned About Future Housing: No Difficulty Paying Gas/Electric Bills: No Difficulty Paying for Meds: No Currently Unemployed: No Education: High School Diploma/GED Difficulty w/ Childca
[2024-01-15 16:41] LABS: Basophils Percent Auto 0.3 % (0.2-1.2); Hematocrit 41.2 % (37.0-47.0); Immature Granulocyte Absolute 0.02 K/mm3 (0.00-0.031); Immature Granulocyte Percent A 0.3 % (0-0.5); Lymphocytes Absolute Auto 0.86 K/mm3 (0.9-3.2); Lymphocytes Percent Auto 12.7 % (18.3-44.2); Mean Corpuscular Hemoglobin 29.9 pg (26-34); Mean Corpuscular Volume 87.8 fl (80-100); Mean Platelet Volume 9.7 fl (7.4-10.4); Monocytes Absolute Auto 0.3 K/mm3 (0.1-0.6); Monocytes Percent Auto 4.7 % (2.6-8.5); Neutrophils Absolute Auto 5.5 K/mm3 (1.3-6.7); Platelet Count Result 241 k/mm3 (150-375); Red Blood Count 4.69 M/mm3 (4.2-5.4); Red Cell Distribution Width 13.9 % (11.5-14.5); White Blood Count 6.8 K/mm3 (4.5-10.0)
[2024-01-15 16:43] LABS: BEDSIDEPREGUCG Negative (Negative)
[2024-01-15 16:48] LABS: Add Urine Microscopic? YES; Appearance Urine Clear (Clear); Bacteria Urine None Seen /hpf; Bilirubin Urine Negative (Negative); Blood Urine Negative (Negative); Color Urine Dark Yellow (Yellow); Glucose Urine UA Negative (Negative); Ketones Urine 2+ mg/dL (Negative); Leukocyte Esterase Ur Negative LEU/UL (Negative); Nitrate Urine Negative (Negative); Protein Urine 1+ mg/dL (Negative); Specific Grav Ur 1.018 (1.001-1.035); Squamous Epithelial Cell Urine Few /hpf (Few); WBC Urine 0-5 /hpf (0-3)
[2024-01-15 16:50] LABS: Alanine Aminotransferase 15 U/L (6-35); Albumin Level 4.6 g/dL (3.5-5.1); Alkaline Phosphatase 49 U/L (38-126); Anion Gap 12 mmol/L (4-12); Aspartate Amino Transferase 25 U/L (14-36); Bilirubin,Total 0.5 mg/dL (0.2-1.3); Blood Urea Nitrogen 8 mg/dL (7-17); Carbon Dioxide 26 mmol/L (22-30); Chloride 91 mmol/L (98-107); Estimated CRCL calculation 108 ml/min; Estimated Glomerular Filt Rate > 60; Glucose 103 mg/dL (65-110); Lipase 88 U/L (23-300); Potassium 3.5 mmol/L (3.4-5.0); Sodium 129 mmol/L (137-145)
[2024-01-15 16:53] LABS: INR 1.1; Prothrombin Time 14.6 Seconds (11.1-14.7)
[2024-01-15 16:54] LABS: Partial Thromboplastin Time 33.7 Seconds (22.3-36.8)
[2024-01-15 17:01] LABS: Troponin I < 0.012 ng/mL (0.000-0.034)
[2024-01-15 17:16] LABS: Influenza A QL RT-PCR Negative (Negative); Influenza B QL RT-PCR Negative (Negative); RSV RNA, RT-PCR Negative (Negative); SARS-CoV-2 RNA PCR Negative (Negative)
[2024-01-15 18:59] VITALS: BP 113/68; PULSE 107; RESP 15; TEMP 38.2; O2SAT 100
[2024-01-15] MEDS: SODIUM CHLORIDE 0.9% IV 1,000 ML 999 ML IV CONT ×2 (19:25→19:39)
[2024-01-15] MEDS: ACETAMINOPHEN 500 MG TABLET 1000 MG PO (19:39)
[2024-01-15] MEDS: BENZONATATE 100 MG CAPSULE 200 MG PO (20:11)
[2024-01-15] MEDS: CEFDINIR 300 MG CAPSULE PO (20:11)
[2024-01-15] MEDS: AZITHROMYCIN 250 MG TABLET 500 MG PO (20:11)
[2024-01-15] MEDS: PROCHLORPERAZINE EDISYLATE 10 MG/2 ML VIAL IV PUSH (21:28)
[2024-01-15 22:13] VITALS: BP 122/60; PULSE 98; RESP 16; TEMP 37.2; O2SAT 98
== END 2024-01-15 22:14 | disposition home or self-care (01) ==
PROVIDERS: Emergency Medicine; Physician Assistant; Emergency Provider Emergency Medicine; PCP Hospitalist
DX: J18.9 Pneumonia, unspecified organism (principal); Z20.822 Contact with and (suspected) exposure to COVID-19; F41.9 Anxiety disorder, unspecified; F32.A Depression, unspecified; Z86.2 Personal history of diseases of the blood and blood-forming organs and certain disorders involving the immune mechanism; Z87.891 Personal history of nicotine dependence; Z79.899 Other long term (current) drug therapy
CPT/HCPCS: 36415; 71046; 80053; 81001; 81025; 83690; 84484; 85025; 85610; 85730; 87637; 93005; 96361; 96374; 99284; A9270; J0780; J7030

== ENCOUNTER 2025-03-01 17:18 | Emergency (ER) | payer OTHER, SELFPAY ==
--- NOTE | 2025-03-01 17:23 | ED.URI ---
HPI - URI/Sore Throat General Chief Complaint: Upper Respiratory Infection Stated Complaint: Cough/Trouble Breathing Time Seen by Provider: 03/01/25 17:36 Source: patient and RN notes reviewed Mode of arrival: ambulatory Limitations: no limitations History of Present Illness HPI Narrative: 39-year-old female presents with concern for 2 week history of nasal congestion, cough. She reports she has been taken ibuprofen. She has a history of pneumonia and is concern for that. She denies any fever, body aches, chills, sweats. MD elicited complaint: nasal congestion Related Data Home Medications ?Medication ?Instructions ?Recorded ?Confirmed ?Last Taken ?Type dextroamphetamine-amphetamine ER 20 mg PO DAILY 01/09/23 08/05/23 Unknown History 20 mg 24hr capsule,extend release hydroxyzine pamoate 50 mg capsule 50 mg PO TID 01/09/23 08/05/23 Unknown History lisdexamfetamine 20 mg capsule mg 03/01/25 Unknown History trazodone 100 mg tablet mg 03/01/25 Unknown History Allergies Allergy/AdvReac Type Severity Reaction Status Date / Time hydrocodone Allergy Difficulty Verified 03/01/25 17:23 Breathing Review of Systems Review of Systems: CONSTITUTIONAL: Denies malaise, chills, sweats, or fever. EYES: Denies visual changes, redness, or discharge. ENT: Reports rhinorrhea, congestion CARDIOVASCULAR: Denies chest pain, palpitations, or edema. RESPIRATORY: Reports cough. Denies dyspnea. GASTROINTESTINAL: Denies abdominal pain, nausea, vomiting, diarrhea SKIN: Denies rash or itching. MUSCULOSKELETAL: Denies myalgia. NEUROLOGIC: Denies headache. All systems reviewed & are unremarkable except as noted in HPI and below PMFSH Past Medical History Medical History Anemia Anxiety Depression History of gestational diabetes hemorrhage Surgical History Surgical History delivery delivered Family History Family History Other No pertinent family history Social History Social History Smoking packs per day: 0.5 Smoking cigarettes per day: 10.0 Years smoked: 10 Smoking pack-years: 5.00 Smoking status: Former smoker Tobacco type: cigarettes Smoking end date: 04/15/17 Alcohol intake: never Substance use: never Substance use type: does not use Do You Feel Safe in your Home?: Yes Lack of Transportation: No Lack of Food: Never True Current Housing: I Have Housing Concerned About Future Housing: No Difficulty Paying Gas/Electric Bills: No Difficulty Paying for Meds: No Currently Unemployed: No Education: High School Diploma/GED Difficulty w/ Childcare or Family Care: No Living arrangements: with family Gender identity (if verbalized by the patient): Female Spiritual care concerns: No Comments At time of signature, agree with nursing past medical, surgical, social and family history. There is no relevant family history pertinent to the presenting complaint Exam Narrative: GENERAL: Well-appearing, well-nourished, and in no acute distress. HEAD: Normocephalic EYES: PERRLA, conjunctivae clear ENT: Nares clear, turbinates edematous and erythematous. Mucous membranes moist. TM pearly connelly with dull light reflex on the left, erythematous and bulging on the right; no tragal tenderness. Oropharynx not erythematous without lesions. Tonsils not enlarged and without exudate, no drooling, no hoarseness, no trismus, uvula midline. NECK: Supple. No lymphadenopathy CHEST: Clear to auscultation, breath sounds equal. No wheezing, rhonchi, rales, or stridor. No respiratory distress, speaks in full sentences. HEART: Regular rate and rhythm. No murmur heard. SKIN: Warm, dry, no rash. NEURO: Alert and oriented x3. PSYCH: Normal mood and affect Course Course Emergency Course: Patient is aware of diagnosis, understands and agrees to treatment plan. Anticipatory guidance given. Patient agrees to follow-up as directed and is aware of reasons to seek care at the emergency department. Portions of this record may have been created with voice recognition software Level of Care: Express Care Visit Vital Signs Vital signs: Reviewed. MDM - URI/Sore Throat MDM Narrative Medical decision making narrative: Differential diagnosis considered: Rose virus, strep pharyngitis, allergic rhinitis, upper respiratory tract infection, sinusitis, rhinosinusitis, nasopharyngitis. viral pharyngitis, otitis media, otitis externa, pneumonia, bronchitis, viral cough syndrome, viral syndrome, and influenza. Exam findings show no acute concerns or changes; patient is non-toxic appearing and is in no distress. Patient is appropriate for outpatient treatment and follow-up. Lab Data Attestation: I reviewed the patient's lab results. Critical Care Time Critical Care Time Critical Care Time: No Discharge Plan Discharge Clinical Impression: Otitis media, Sinobronchitis Patient Disposition: Home Condition: Stable Instructions: Antibiotic Form, Acute Bronchitis (ED) Additional Instructions: Take antibiotics as directed. Recommend antihistamine such as Benadryl at night time and Zyrtec or Marissa during the day until symptoms improve Also, recommend symptomatic treatment includes: rest, fluids, and increase humidity of the air at home. Recommend Acetaminophen as directed on the bottle to reduce fever, pain Please schedule a follow-up visit with your personal physician for further evaluation and treatment within 3-5days. If your symptoms persist, change or worsen significantly before you can contact your personal physician then please, without delay, go to the emergency department for further evaluation. Patient Language: Armenian Prescriptions: New methylprednisolone [Medrol (Jose Eduardo)] 4 mg tablets,dose pack See Rx Instructions .ROUTE .COMPLEX Qty: 21 0RF Rx Instructions: orally per package directions amoxicillin-pot clavulanate 875-125 mg tablet 1 tablet PO Q12H 10 Days Qty: 20 0RF No Action hydroxyzine pamoate 50 mg capsule 50 mg PO TID dextroamphetamine-amphetamine 20 mg capsule,extended release 24hr 20 mg PO DAILY albuterol sulfate [ProAir HFA] 90 mcg/actuation HFA aerosol inhaler 2 puff INHALATION Q4-6H PRN (Reason: shortness of breath or wheezing) Qty: 18 0RF trazodone 100 mg tablet lisdexamfetamine 20 mg capsule Follow-up/Referrals: PHYSICIAN,ARCHITECTURAL SALES CONSULTANT [Primary Care Provider, Internal Medicine] Stand Alone Forms: Work/School Release IP Time of Disposition: 17:53
[2025-03-01 17:30] VITALS: BP 109/71; PULSE 76; RESP 16; TEMP 36.2; O2SAT 100
== END 2025-03-01 17:56 | disposition home or self-care (01) ==
PROVIDERS: Emergency Provider Nurse Practitioner
DX: H66.92 Otitis media, unspecified, left ear (principal); J32.9 Chronic sinusitis, unspecified; J40 Bronchitis, not specified as acute or chronic; F41.9 Anxiety disorder, unspecified; F32.A Depression, unspecified; Z87.891 Personal history of nicotine dependence
CPT/HCPCS: 99213; G0463